=== PATIENT | male | born 1935 | race Caucasian/White ===

== ENCOUNTER 2020-02-07 15:43 | Outpatient (REF) | payer MEDICARE, SELFPAY | END 2020-02-07 15:44 | disposition home or self-care (01) | LOC: HO.LAB 15:43 | PROVIDERS: PCP Internal Medicine; Visit Provider Internal Medicine | DX: Z20.828 Contact with and (suspected) exposure to other viral communicable diseases (principal) | CPT/HCPCS: C9803; U0003 ==

== ENCOUNTER 2020-02-19 10:15 | Emergency (ER) | payer MEDICARE, SELFPAY ==
[2020-02-19 10:37] VITALS: BP 121/61; PULSE 67; RESP 18; TEMP 36.6; O2SAT 97; BMI 27.3
--- NOTE | 2020-02-19 10:37 | XR_ITS ---
EXAMINATION: LEFT HIP AND FEMUR CLINICAL INFORMATION: Atraumatic lateral upper leg pain COMPARISON: None TECHNIQUE: AP pelvis and two-view left hip. Left femur AP and lateral. FINDINGS: There is no evidence of acute fracture or diastases of the pelvis. Mild spurring sacroiliac joints seen. There is facet arthropathy is seen at the L5-S1 level with some disc space narrowing. Hip joint spaces appear maintained. There is some spurring about the left greater trochanter. No acute fracture or dislocation of the left hip is seen. Left hip joint space maintained. Calcific tendinitis greater trochanter. There is no evidence of acute fracture or dislocation of the left femur. No destructive bony lesions evident. No knee effusion is seen. There is some mild narrowing and spurring seen about the lateral knee joint space compartment. Vascular calcifications present. XR/XR pelvis 1-2V IMPRESSION: No significant bony abnormality of the left hip or femur identified. Calcific tendinitis left greater trochanter.
--- NOTE | 2020-02-19 10:37 | XR_ITS ---
EXAMINATION: LEFT HIP AND FEMUR CLINICAL INFORMATION: Atraumatic lateral upper leg pain COMPARISON: None TECHNIQUE: AP pelvis and two-view left hip. Left femur AP and lateral. FINDINGS: There is no evidence of acute fracture or diastases of the pelvis. Mild spurring sacroiliac joints seen. There is facet arthropathy is seen at the L5-S1 level with some disc space narrowing. Hip joint spaces appear maintained. There is some spurring about the left greater trochanter. No acute fracture or dislocation of the left hip is seen. Left hip joint space maintained. Calcific tendinitis greater trochanter. There is no evidence of acute fracture or dislocation of the left femur. No destructive bony lesions evident. No knee effusion is seen. There is some mild narrowing and spurring seen about the lateral knee joint space compartment. Vascular calcifications present. XR/XR femur LT 2V IMPRESSION: No significant bony abnormality of the left hip or femur identified. Calcific tendinitis left greater trochanter.
--- NOTE | 2020-02-19 10:37 | US_ITS ---
EXAMINATION: US VENOUS ULTRASOUND WITH DOPPLER LOWER EXTREMITY, LEFT CLINICAL INFORMATION: Left leg pain and swelling COMPARISON: None TECHNIQUE: Ultrasound of the deep veins is performed from the hip to the calf with compression sonography and color and pulse Doppler assessment. Spectral analysis with color-flow imaging is performed. FINDINGS: There is normal venous compression and respiratory variation and augmented flow. The visualized common femoral vein, superficial femoral vein, profunda femoral vein, popliteal vein, and the trifurcation region shows no evidence of deep venous thrombosis. There is no significant popliteal fossa cyst. No popliteal artery aneurysm If the patient's symptoms persist, followup ultrasound in 5 days 7 days might be of value to exclude proximal propagation from a non-visualized calf vein. US/US venous duplex LE LT IMPRESSION: No acute DVT demonstrated in the left lower extremity.
--- NOTE | 2020-02-19 11:11 | ED.EXTPRO ---
HPI - Extremity Problem General Chief complaint: Extremity Injury, Lower Stated complaint: leg pain (no known injury) Time Seen by Provider: 02/19/20 10:17 Source: patient Mode of arrival: ambulatory Limitations: no limitations History of Present Illness HPI Narrative: 84yoM c PMHx of prostate cancer, nephrolithiasis and hyperlipidemia presenting to the ED with complaints of atraumatic left outer thigh pain radiating to his left lower leg with associated lower leg swelling for the past few days worse today. Denies any fevers, nausea / vomiting, chest pain or shortness of breath, palpitations or any other symptoms complaints or concerns at this time. Denies history of DVT or PE in the past. Related Data Previous Rx's Medication Instructions Recorded valsartan 160 mg tablet 160 mg PO DAILY 90 Days #90 tab 12/27/19 amlodipine 10 mg tablet 10 mg PO DAILY #90 tab 01/17/20 atenolol 25 mg tablet 25 mg PO DAILY #90 tab 01/17/20 atorvastatin 20 mg tablet 20 mg PO DAILY #90 tab 01/17/20 cyclobenzaprine 10 mg PO TID PRN #10 tab 02/19/20 oxycodone-acetaminophen [Percocet] 1 tab PO Q6H PRN #10 tab 02/19/20 Allergies Allergy/AdvReac Type Severity Reaction Status Date / Time No Known Allergies Allergy Verified 02/19/20 10:37 Review of Systems Review of Systems: Constitutional :No Fever, No Chills Cardiovascular : No Chest Pain, No SOB, No Dyspnea on Exertion, No Orthopnea, No Palpitations Respiratory : No Cough, No Sputum, No Wheezing, No Smoke Exposure, No Dyspnea Musculoskeletal : + joint pain, + Joint Swelling Skin : No Skin Lesions, No rash Neuro : No Weakness, No Numbness, No Paresthesias, No Dizziness Heme/Lymph: No Lymphadenopathy Yes all other systems are reviewed and are negative [facility] Past Medical History Attestation statement: The following information was validated with the patient. Medical History No known health problems Social History Social History Alcohol intake: unknown Smoking Status: Unknown if ever smoked Use of substances other than those prescribed or required for medical reasons: Unknown Advance Directives: No Advance Directives Information Provided: No Physical Exam Vital Signs: Vital Signs: Last Vital Signs Temp 97.8 F 02/19/20 10:37 Pulse 67 02/19/20 10:37 Resp 18 02/19/20 10:37 BP 121/61 02/19/20 10:37 Pulse Ox 97 02/19/20 10:37 Body Mass Index 27.3 vital signs have been reviewed as normal and appeared to be correct. Blood pressure normal. Heart rate normal. Respiration rate normal. Temperature normal. Oxygen saturation normal. Appearance: Alert. Oriented X3. No acute distress. Head: Normal external exam. Normocephalic. Atraumatic. Eyes: PERRLA. EOMI. Conjunctiva and sclera normal. Eyelids normal. ENT: Pharynx normal. Uvula midline. Moist mucous membranes. Neck: Normal inspection. Neck supple. FROM. No adenopathy. No meningeal signs. No neck mass noted. CVS: Normal heart rate and rhythm. Heart sound normal. No murmurs noted. Pulses normal throughout. Respiratory: No respiratory distress. Painless inspiration. Breath sounds normal. No wheezes/rales/rhonchi noted. Chest nontender. No accessory muscle usage noted or decreased air movement noted. Back: No CVA tenderness. Full range of motion noted. No obvious deformities, or edema. Mild para-spinal muscular tenderness from lumbar region to coccyx. Full ROM in back and lower extremities. 5/5 strength hip extension/flexion, abduction, adduction. Mild Lumbar pain with hip flexion against resistance. Straight leg raise test negative on right; Straight leg raise test negative on left; Reflexes normal ankle and knee bilaterally; EHL motor strength normal bilaterally Skin: Skin warm and dry. Normal skin color. Normal skin turgor. No rashes/lesions/lacerations noted. Extremities: + Left lower extremity mild +1 pitting edema. No edema to Right Lower leg. Mild ttp of lateral aspect of upper thigh and hip. FROM of the entire leg. No ttp of left ankle. All other Extremities exhibit normal range of motion and nontender. Neuro: Oriented X 3. No motor deficit. No sensory deficit. Reflexes normal. Course Course Course Narrative: 84yoM c PMHx of prostate cancer, nephrolithiasis and hyperlipidemia presenting to the ED with complaints of atraumatic left outer thigh pain radiating to his left lower leg with associated lower leg swelling for the past few days worse today. - Concern for DVT vs Muscular strain vs arthritis - Plan: Xray of left Hip/pelvis/Femur and US to Evaluate for possible DVT. And re-evaluate. Patient declining any symptomatic treatment this time. Reevaluation(s) Reevaluation #1: patient with calcified tendinitis to right hip joint with bone spurring. With arthritis noted to lower spine. Negative for DVT. Will DC home with symptomatic treatment patient reports over the counter Tylenol and Motrin were not helping. With instructions to return if any new or worsening symptoms to follow-up with primary care provider. Patient understands agrees the plan. Time: 11:55 MDM - Extremity (Nontraumatic) Medical Records Attestation: I reviewed the patient's medical records. Imaging Data Xray of left hip/pelvis/femur: Attestation: I personally reviewed and interpreted this imaging study as follows: Radiologist's impression: IMPRESSION: No significant bony abnormality of the left hip or femur identified. Calcific tendinitis left greater trochanter. US of LLE: Attestation: I personally reviewed and interpreted this imaging study as follows: Radiologist's impression: IMPRESSION: No acute DVT demonstrated in the left lower extremity. Discharge Plan Discharge Clinical Impression: Calcifying tendinitis, Bone spur of femur, Arthropathy of facet joint Patient Disposition: Home, Self-Care Instructions: Calcific Tendinitis (ED), Arthritis (ED) Prescriptions: New cyclobenzaprine 10 mg tablet 10 mg PO TID PRN (Reason: muscle spasm) Qty: 10 RF: 0 oxycodone-acetaminophen [Percocet] 5-325 mg tablet 1 tab PO Q6H PRN (Reason: pain) Qty: 10 RF: 0 No Action valsartan 160 mg tablet 160 mg PO DAILY 90 Days Qty: 90 RF: 1 amlodipine 10 mg tablet 10 mg PO DAILY Qty: 90 RF: 0 atenolol 25 mg tablet 25 mg PO DAILY Qty: 90 RF: 0 atorvastatin 20 mg tablet 20 mg PO DAILY Qty: 90 RF: 1 Referrals: Coleman Hutson MD [Primary Care Provider] - 2 days Print Language: Faroese
== END 2020-02-19 11:59 | disposition home or self-care (01) ==
PROVIDERS: Emergency Provider Internal Medicine; PCP Internal Medicine
DX: M79.605 Pain in left leg (principal); R60.0 Localized edema; M65.261 Calcific tendinitis, right lower leg; Z79.899 Other long term (current) drug therapy
CPT/HCPCS: 72170; 73552; 93971; 99283; 99284

== ENCOUNTER 2020-06-13 10:50 | Observation (INO) | payer OTHER, MEDICARE, SELFPAY ==
--- NOTE | ~2020-06-13 | CT_ITS ---
EXAMINATION: CT ABDOMEN AND PELVIS WITHOUT CONTRAST CLINICAL INFORMATION: GI bleed. Possible colitis/diverticulitis. COMPARISON: Venous ultrasound left lower extremity 02/19/2020, report CT abdomen and pelvis 12/30/2005. TECHNIQUE: Multidetector volumetric imaging was performed from the superior aspect of the liver through the pubic symphysis. Sagittal and coronal reformatted images were obtained on the technologist's workstation. No oral or intravenous contrast. This CT examination was performed using dose optimization techniques as appropriate, variously including the following: *Automated exposure control *Adjustment of mA and/or kV according to patient size (this includes techniques or standardized protocols for targeted exams where dose is matched to indication/reason for exam; i.e. extremities or head) *Use of iterative reconstruction technique DLP: 583 mGy-cm FINDINGS: LUNG BASES: Linear scarring versus disc atelectasis posterior bases. No airspace consolidation or effusion. LIVER, GALLBLADDER, AND BILIARY TREE: Liver is normal in size and smooth in contour with homogeneous parenchyma. There is a punctate hypodense lesion dome left lobe approximately 0.5 cm too small to characterize, likely a tiny cyst (series 2 image 15). There is mild periportal edema. No intrahepatic ductal dilatation. Gallbladder calculus 1.1 cm in size. There is no gallbladder dilatation. The serosal surface is ill-defined and there is suspicion for mild pericholecystic inflammatory changes overlying the serosa. The common duct is normal in caliber. No visible ductal calculus. PANCREAS: Normal in size. No peripancreatic inflammatory changes. No pancreatic ductal distention. SPLEEN: Enlarged measuring 14.5 cm vertical and 14.2 cm sagittal. Parenchyma homogeneous. Incidental splenule left upper quadrant 2.1 cm. ADRENAL GLANDS: Unremarkable. KIDNEYS AND URETERS: There is mild fullness bilateral renal collecting system without overt hydronephrosis. There is no hydroureter or perinephric stranding or visible calculi. Cyst medial upper pole left kidney 2.4 cm and water attenuation on cursor measurement. BLADDER: Unremarkable. GASTROINTESTINAL TRACT: No bowel obstruction or focal inflammatory changes in the bowel or adjacent mesentery. The appendix is not seen with certainty. There are no inflammatory changes around the terminal ileum or cecum. No ascites or fluid collection. No pneumatosis or free air. ABDOMINAL WALL: Small fat-containing right inguinal hernia, 2.5 cm in diameter. LYMPH NODES: No lymphadenopathy. VASCULAR: Distal abdominal aorta aneurysm 4.6 cm AP and 3.5 cm transverse. PELVIC VISCERA: Unremarkable. OSSEOUS STRUCTURES: No acute bony abnormality. Degenerative changes spine. CT/CT abdomen pelvis wo con IMPRESSION: 1. Gallstone 1.1 cm. Question early pericholecystic inflammatory change. No gallbladder dilatation or ductal dilatation or visible choledocholithiasis. 2. Distal abdominal aortic aneurysm 4.6 cm. 3. No bowel obstruction or focal inflammatory changes in bowel or mesentery. No ascites or fluid collection. 4. Splenomegaly 14.5 cm. Liver normal in size. Pancreas unremarkable. No hydronephrosis.
[2020-06-13 11:07] VITALS: BP 137/66; PULSE 77; RESP 18; TEMP 36.8; O2SAT 98; BMI 29.9
[2020-06-13 12:10] LABS: MANUAL DIFF FLAG NO
[2020-06-13 12:13] LABS: Basophils Percent Auto 0.4 % (0-2); Eosinophils Absolute Auto 0.1 X10*3/uL (0.0-0.4); Eosinophils Percent Auto 1.1 % (0-4); Hematocrit 35.1 % (42-52); Hemoglobin 12.2 g/dl (14.0-18.0); Imm Gran Abs Auto 0.02 X10*3/uL (0.00-0.03); Imm Gran Pct Auto 0.3 % (0.0-0.4); Lymphocytes Absolute Auto 1.1 X10*3/uL (1.2-4.9); Lymphocytes Percent Auto 14.6 % (20-40); Mean Corpuscular HGB Conc 34.8 g/dl (31.0-36.0); Mean Corpuscular Hemoglobin 34.1 pg (27.0-33.0); Mean Platelet Volume 10.3 fL (9.4-12.4); Monocytes Absolute Auto 0.8 X10*3/uL (0.1-1.2); Monocytes Percent Auto 10.4 % (2-11); Neutrophils Absolute Auto 5.4 X10*3/uL (2.0-8.3); Neutrophils Percent Auto 73.2 % (45-73); Platelet Count 98 X10*3/uL (160-400); Red Blood Count 3.58 X10*6/uL (4.60-5.80); Red Cell Distribution Width 11.8 % (11.0-16.0); White Blood Count 7.4 X10*3/uL (4.8-10.8)
--- NOTE | 2020-06-13 12:14 | ED_ITS ---
HPI - GI Bleed General Chief complaint: GI Bleed Stated complaint: rectal bleeding Time Seen by Provider: 06/13/20 12:14 History of Present Illness HPI Narrative: Patient complains of multiple episodes of rectal bleeding since 2 in the morning last night, he was woken from sleep went to the bathroom and classed a significant amount of blood, and then had 3 more episodes including 1 episode where he passed normal colored brown stool mixed with blood He has no dizziness no weakness no abdominal pain no nausea or vomiting no diarrhea no rectal pain, no fever no chills He does take aspirin once a day, he does not take any blood thinner and he uses an NSAID very infrequently and has not used it for many days Related Data Home Medications Medication Instructions Recorded Confirmed [id number] [Beano] 300 unit PO TID 06/13/20 06/13/20 aspirin 81 mg PO DAILY 06/13/20 06/13/20 Previous Rx's Medication Instructions Recorded valsartan 160 mg tablet 160 mg PO DAILY 90 Days #90 tab 12/27/19 atorvastatin 20 mg tablet 20 mg PO DAILY #90 tab 01/17/20 amlodipine 10 mg tablet 10 mg PO DAILY #90 tab 05/30/20 atenolol 25 mg tablet 25 mg PO DAILY #90 tab 05/30/20 Allergies Allergy/AdvReac Type Severity Reaction Status Date / Time No Known Allergies Allergy Verified 05/08/20 13:33 Review of Systems Review of Systems: Positive for multiple episodes of red blood in the toilet Negatives are no fever no chills no dizziness no weakness no headache no confusion no difficulty breathing or swallowing no chest pain no palpitations no fainting no feeling faint no abdominal pain no nausea no vomiting no black tarry stools no dysuria no urinary complaints no leg swelling no rash, no balance issues no weakness or numbness, no bleeding from any other site Yes all other systems are reviewed and are negative [facility] Past Medical History [facility] Narrative: Patient has history of high blood pressure, prostate cancer, as well as repair of an aortic aneurysm and hernia surgeries Medical History (Updated 06/13/20 @ 16:00 by YAZAN Javier) Essential (primary) hypertension History of abdominal hernia No known health problems Surgical History History of abdominal aortic aneurysm (AAA) repair History of hand surgery History of knee replacement Family History Family History (Updated 05/08/20 @ 13:23 by Peri Caceres) Mother No problems noted. Father No problems noted. Social History Social History (Updated 05/08/20 @ 13:23 by Peri Caceres) Alcohol intake: current Alcohol intake frequency: 0-2 drinks per day Alcohol type: beer Smoking Status: Never smoker Use of substances other than those prescribed or required for medical reasons: No Advance Directives: No Advance Directives Information Provided: No Physical Exam Vital Signs: Vital Signs: Last Vital Signs Temp 98.0 F 06/13/20 15:10 Pulse 78 06/13/20 15:10 Resp 18 06/13/20 15:10 BP 133/59 L 06/13/20 15:10 Pulse Ox 98 06/13/20 15:10 Body Mass Index 29.9 General appearance is no acute distress, comfortable relaxed and cooperative and O x3 The head is normocephalic atraumatic The pharynx is clear and moist The pupils are anicteric, no pallor The neck is supple The chest is clear to auscultation bilaterally full symmetric equal breath sounds Heart no murmurs Abdomen is soft nontender no rebound no guarding, normal abdomen exam Rectal exam was nontender, normal tone, no mass or hemorrhoid was palpated there was no tenderness on exam, no external source of bleeding was identified Extremities full range of motion x4, no edema no calf tenderness or swelling Skin no rashes no petechiae no purpura or Neuro motor is 5 over x5 4, sensation intact, gait and balance normal, speech in interaction normal Course Course Course Narrative: Patient with complaint of multiple episodes of red blood in the stool since last night is stable with no dizziness or weakness no abdominal pain no nausea or vomiting I guaiaced him and guaiac was clearly positive Another guaiac card with the same sample was sent to the lab in the lab reported as negative, my exam was light colored brown stool small amount was placed on both cards and when I tested it was clearly blue and was shown to the patient who saw it Platelets were 96, patient does take aspirin CT scan did not identify any acute cause of the bleeding Stable patient with multiple episodes of rectal bleeding is admitted to medical unit for further care MDM - GI Bleed Differential Diagnosis Differential diagnosis: Likely hemorrhoids, infectious diarrhea, esophageal varices, Upper gastrointestinal hemorrhage and Lower gastrointestinal hemorrhage Lab Data Attestation: I reviewed the patient's lab results. Result diagrams: 06/13/20 12:05 06/13/20 12:04 Labs: Lab Results 06/13/20 06/13/20 06/13/20 Range/Units 12:04 12:05 12:05 WBC 7.4 (4.8-10.8) X10*3/uL RBC 3.58 L (4.60-5.80) X10*6/uL Hgb 12.2 L (14.0-18.0) g/dl Hct 35.1 L (42-52) % MCV 98.0 (80-98) fL MCH 34.1 H (27.0-33.0) pg MCHC 34.8 (31.0-36.0) g/dl RDW 11.8 (11.0-16.0) % Plt Count 98 L (160-400) X10*3/uL MPV 10.3 (9.4-12.4) fL Immature Gran % (Auto) 0.3 (0.0-0.4) % Neut % (Auto) 73.2 H (45-73) % Lymph % (Auto) 14.6 L (20-40) % [place] % (Auto) 10.4 (2-11) % Eos % (Auto) 1.1 (0-4) % Baso % (Auto) 0.4 (0-2) % Lymph # (Auto) 1.1 L (1.2-4.9) X10*3/uL [place] # (Auto) 0.8 (0.1-1.2) X10*3/uL Eos # (Auto) 0.1 (0.0-0.4) X10*3/uL Baso # (Auto) 0.0 (0.0-0.2) X10*3/uL Abs Immat Gran (auto) 0.02 (0.00-0.03) X10*3/uL Absolute Neuts (auto) 5.4 (2.0-8.3) X10*3/uL Absolute Nucleated RBC 0.000 (0.0-0.012) X10*3/uL Nucleated RBC % (auto) 0.0 (0.0-0.2) /100WBC PT 11.9 (10.8-13.0) SEC INR 1.0 (0.9-1.1) Hold Blue Top SEE NOTE Sodium 141 (135-145) mmol/L Potassium 4.0 (3.3-5.1) mmol/L Chloride 107 (96-108) mmol/L Carbon Dioxide 24 (22-29) mmol/L Anion Gap 14 (12-20) BUN 22 H (9-16) mg/dL Creatinine 1.22 (0.5-1.4) mg/dL Estim Creat Clear Calc 45.9 Estimated GFR 57 Random Glucose 130 H (60-115) mg/dL Calcium 9.0 (8.4-10.2) mg/dL Total Bilirubin 0.6 (0.0-1.0) mg/dL Direct Bilirubin 0.3 (0.0-0.5) mg/dL AST 21 (5-37) U/L ALT 10 (0-40) U/L Alkaline Phosphatase 86 (39-117) U/L Total Protein 6.3 L (6.5-8.0) g/dL Albumin 4.1 (3.5-5.0) g/dL Stool Occult Blood (NEGATIVE) Blood Type Antibody Screen 06/13/20 06/13/20 Range/Units 13:02 13:54 WBC (4.8-10.8) X10*3/uL RBC (4.60-5.80) X10*6/uL Hgb (14.0-18.0) g/dl Hct (42-52) % MCV (80-98) fL MCH (27.0-33.0) pg MCHC (31.0-36.0) g/dl RDW (11.0-16.0) % Plt Count (160-400) X10*3/uL MPV (9.4-12.4) fL Immature Gran % (Auto) (0.0-0.4) % Neut % (Auto) (45-73) % Lymph % (Auto) (20-40) % [place] % (Auto) (2-11) % Eos % (Auto) (0-4) % Baso % (Auto) (0-2) % Lymph # (Auto) (1.2-4.9) X10*3/uL [place] # (Auto) (0.1-1.2) X10*3/uL Eos # (Auto) (0.0-0.4) X10*3/uL Baso # (Auto) (0.0-0.2) X10*3/uL Abs Immat Gran (auto) (0.00-0.03) X10*3/uL Absolute Neuts (auto) (2.0-8.3) X10*3/uL Absolute Nucleated RBC (0.0-0.012) X10*3/uL Nucleated RBC % (auto) (0.0-0.2) /100WBC PT (10.8-13.0) SEC INR (0.9-1.1) Hold Blue Top Sodium (135-145) mmol/L Potassium (3.3-5.1) mmol/L Chloride (96-108) mmol/L Carbon Dioxide (22-29) mmol/L Anion Gap (12-20) BUN (9-16) mg/dL Creatinine (0.5-1.4) mg/dL Estim Creat Clear Calc Estimated GFR Random Glucose (60-115) mg/dL Calcium (8.4-10.2) mg/dL Total Bilirubin (0.0-1.0) mg/dL Direct Bilirubin (0.0-0.5) mg/dL AST (5-37) U/L ALT (0-40) U/L Alkaline Phosphatase (39-117) U/L Total Protein (6.5-8.0) g/dL Albumin (3.5-5.0) g/dL Stool Occult Blood NEGATIVE (NEGATIVE) Blood Type B Positive Antibody Screen NEGATIVE Imaging Data CT scan - abdomen: Radiologist's impression: 1. Gallstone 1.1 cm. Question early pericholecystic inflammatory change. No gallbladder dilatation or ductal dilatation or visible choledocholithiasis. 2. Distal abdominal aortic aneurysm 4.6 cm. 3. No bowel obstruction or focal inflammatory changes in bowel or mesentery. No ascites or fluid collection. 4. Splenomegaly 14.5 cm. Liver normal in size. Pancreas unremarkable. No hydronephrosis. Discharge Plan Discharge Clinical Impression: GI bleed Patient Disposition: Admitted As Inpatient
[2020-06-13 12:48] LABS: Anion Gap 14 (12-20); Blood Urea Nitrogen 22 mg/dL (9-16); Carbon Dioxide 24 mmol/L (22-29); Chloride 107 mmol/L (96-108); Creatinine Clr Calc Pharmacy 45.9; Estimated Glomerular Filt Rate 57; Glucose Random 130 mg/dL (60-115); Sodium 141 mmol/L (135-145)
[2020-06-13 13:04] LABS: Prothrombin Time 11.9 SEC (10.8-13.0)
[2020-06-13 13:17] LABS: OBS Int Ctl Valid YES; OBS1 NEGATIVE (NEGATIVE)
[2020-06-13 13:45] LABS: Alanine Aminotransferase 10 U/L (0-40); Albumin Level 4.1 g/dL (3.5-5.0); Alkaline Phosphatase 86 U/L (39-117); Aspartate Amino Transferase 21 U/L (5-37); Bilirubin Direct 0.3 mg/dL (0.0-0.5); Bilirubin Total 0.6 mg/dL (0.0-1.0); Total Protein 6.3 g/dL (6.5-8.0)
--- NOTE | 2020-06-13 14:55 | PC.NURSE ---
report taken from Joseph r=pending ct scan which is negative. Client appears in nbad, denies pain. Ray x 3 with equal and non labored rr.
[2020-06-13 15:10] VITALS: BP 133/59; PULSE 78; RESP 18; TEMP 36.7; O2SAT 98
[2020-06-13 16:00] VITALS: BP 140/62; PULSE 71; RESP 16; TEMP 36.7; O2SAT 96
--- NOTE | 2020-06-13 16:47 | PC.NURSE ---
client offers no needs wants, client was seen by hospitalist. pending admission at this time.
--- NOTE | 2020-06-13 16:48 | PC.NURSE ---
client remains sleeping at this time. nad noted,
[2020-06-13 17:05] LABS: COVID-19 Test Negative (Negative); IDNOW Serial# 9DD0AD1C
--- NOTE | 2020-06-13 17:18 | P.HPHOSP_ITS ---
History of Present Illness Date of Service: 06/13/20 Chief Complaint: rectal bleeding This is an 84-year-old male who presents to the emergency department today with complaints of rectal bleeding. Last evening around 22:00 he had the first episode of rectal bleeding. He reports 4 episodes of bright red blood per rectum. This blood was not mixed with stool. He denies any associated abdominal pain, diarrhea, fever, chills. He denies any previous history of GI bleeding. He takes a baby aspirin at home daily but denies the use of any anticoagulation or NSAIDs. CT scan of the abdomen did not show any acute pathology to account for bleeding. H/H was stable compared to previous from 2019. Stool occult was ch ecked and was negative. He does report having to strain recently when having bowel movements. Last colonoscopy was 15 years ago and was reportedly normal. He denies any known history of hemorrhoids. Given multiple episodes of rectal bleeding, the decision was made to admit him overnight for observation. Review of Systems Review of Systems: Yes all other systems are reviewed and are negative Constitutional: Constitutional: Denies chills and Denies fever(s) Cardiovascular: Cardiovascular: Denies chest pain Respiratory: Respiratory: Denies cough Gastrointestinal: Gastrointestinal: Denies abdominal pain, Denies diarrhea, Denies nausea and Denies vomiting [facility] Medical History (Updated 06/13/20 @ 17:31 by YAZAN Melgar) Essential (primary) hypertension History of abdominal hernia Hyperlipidemia No known health problems Prostate cancer Functional capacity: independent ambulation Family History Mother No problems noted. Father No problems noted. Family history: reviewed and not pertinent Surgical History H/O radical prostatectomy History of abdominal aortic aneurysm (AAA) repair History of hand surgery History of knee replacement Social History (Updated 06/13/20 @ 17:31 by YAZAN Melgar) Alcohol intake: current Alcohol intake frequency: 0-2 drinks per day Alcohol type: hard liquor Smoking Status: Never smoker Use of substances other than those prescribed or required for medical reasons: No Advance Directives: No Advance Directives Information Provided: No Meds Allergies Allergy/AdvReac Type Severity Reaction Status Date / Time No Known Allergies Allergy Verified 05/08/20 13:33 Active Medications: Current Medications Generic Name Dose Route Start Last Admin Trade Name Ana PRN Reason Stop Dose Admin Pharmacy Consult 1 each 06/13/20 14:54 Consult Rx Perform Med Rec MISCELLANE ONCE PRN Consult order Home Medications Medication Instructions Recorded Confirmed Last Taken Type gmelc-[id number] [Beano] 300 unit PO TID 06/13/20 06/13/20 06/12/20 History aspirin 81 mg PO DAILY 06/13/20 06/13/20 06/13/20 History Physical Exam Vital Signs and Narrative: Vital Signs: Last Vital Signs Temp 98.1 F 06/13/20 16:00 Pulse 71 06/13/20 16:00 Resp 16 06/13/20 16:00 BP 140/62 H 06/13/20 16:00 Pulse Ox 96 06/13/20 16:00 Body Mass Index 29.9 Const: General: no acute distress, alert and awake Nutritional Appearance: well nourished Orientation/consciousness: patient oriented x3 HENMT: Head: Yes normocephalic and Yes atraumatic Eyes: Sclerae: sclerae normal Chest: Chest palpation & inspection: normal inspection of the chest Resp: Effort & Inspection: normal respiratory effort and no respiratory distress Auscultation: clear to auscultation bilaterally Cardio: Rate: regular rate Rhythm: regular rhythm Heart sounds: Murmur heart sound present systolic GI: Inspection: No distended Palpation (GI): Soft to palpation and nontender Neuro: General: patient oriented x3 Cranial nerves: Yes CN's II-XII intact bilaterally and Yes Bilaterally intact EOM present Extrem: Other: trace LLE edema Results Labs CBC and Chem 7: 06/13/20 12:05 06/13/20 12:04 Labs: Laboratory Results - last 24 hr 06/13/20 06/13/20 06/13/20 12:04 12:05 12:05 MCV 98.0 MCH 34.1 H MCHC 34.8 RDW 11.8 Plt Count 98 L MPV 10.3 Immature Gran % (Auto) 0.3 Neut % (Auto) 73.2 H Lymph % (Auto) 14.6 L Armstrong % (Auto) 10.4 Eos % (Auto) 1.1 Baso % (Auto) 0.4 Lymph # (Auto) 1.1 L Armstrong # (Auto) 0.8 Eos # (Auto) 0.1 Baso # (Auto) 0.0 Abs Immat Gran (auto) 0.02 Absolute Neuts (auto) 5.4 Absolute Nucleated RBC 0.000 Nucleated RBC % (auto) 0.0 PT 11.9 INR 1.0 Hold Blue Top SEE NOTE Anion Gap 14 Estim Creat Clear Calc 45.9 Estimated GFR 57 Random Glucose 130 H Calcium 9.0 Total Bilirubin 0.6 Direct Bilirubin 0.3 AST 21 ALT 10 Alkaline Phosphatase 86 Total Protein 6.3 L Albumin 4.1 Stool Occult Blood COVID-19 (MARIA LUISA) COVID-19 [employer] Blood Type Antibody Screen 06/13/20 06/13/20 06/13/20 13:02 13:54 16:31 MCV MCH MCHC RDW Plt Count MPV Immature Gran % (Auto) Neut % (Auto) Lymph % (Auto) Armstrong % (Auto) Eos % (Auto) Baso % (Auto) Lymph # (Auto) Armstrong # (Auto) Eos # (Auto) Baso # (Auto) Abs Immat Gran (auto) Absolute Neuts (auto) Absolute Nucleated RBC Nucleated RBC % (auto) PT INR Hold Blue Top Anion Gap Estim Creat Clear Calc Estimated GFR Random Glucose Calcium Total Bilirubin Direct Bilirubin AST ALT Alkaline Phosphatase Total Protein Albumin Stool Occult Blood NEGATIVE COVID-19 (MARIA LUISA) Negative COVID-19 [employer] See Note Blood Type B Positive Antibody Screen NEGATIVE Imaging Radiologist's Impressions: Impressions Abdomen/Pelvis CT 06/13/20 12:55 IMPRESSION: 1. Gallstone 1.1 cm. Question early pericholecystic inflammatory change. No gallbladder dilatation or ductal dilatation or visible choledocholithiasis. 2. Distal abdominal aortic aneurysm 4.6 cm. 3. No bowel obstruction or focal inflammatory changes in bowel or mesentery. No ascites or fluid collection. 4. Splenomegaly 14.5 cm. Liver normal in size. Pancreas unremarkable. No hydronephrosis. Assessment and Plan (1) GI bleed: Status: Acute This is an 84-year-old male with a history of hypertension, hyperlipidemia, AAA status post repair who presents to the emergency department with rectal bleeding Acute GI bleeding Lower GI source. No diverticulosis/colitis noted on CT. H/H stable, no indication for transfusion. Stool occult negative -Clear liquid diet -IVF -Trend CBC -Hold ASA, avoid AC -GI consult HTN. -Continue Atenolol -Hold Norvasc, valsartan in setting of GIB -Follow BP closely TCP No previous baseline available Splenomegaly on CT -Hold ASA -Follow CBC HLD -Continue statin DVT prophylaxis-mechanical devices Code status-full code This case was discussed with Dr. Lazo
--- NOTE | 2020-06-13 17:37 | PM.EVENT ---
Event Note Date of Service: 06/13/20 Event Note: Addendum to documentation (H and P) by midlevel I saw and examined the patient and participated in the grace portion of the E/M service. I agree with the history and exam as documented by PA. Patient presents with 4 episodes or rectal bleed with no pain, Hgb is 12, and hemodynamically stable. Last colonoscopy 15 years. Exam: Abd sot, nd, nt, cvRRR S1S2, lungs, clear, Neuro intact. Will admit for serial H/H, monitor hemodynamically, bleeding scan if actively bleeding, GI consult for possible endoscopy, No heparin/Lovenox and hold ASA. Otherwise, I agree with assessment and plan as outlined in the H and P.
[2020-06-13 18:00] VITALS: BP 126/62; PULSE 67; RESP 16; TEMP 36.9; O2SAT 95
--- NOTE | 2020-06-13 18:16 | PC.NURSE ---
client brought dinner, soiled and urinated in bed. client changed, skin wiped down with wipes. client did well with sterilift. client ate 100% of dinner. offers no new complaints. pending bed assignment,
[2020-06-13 21:57] VITALS: BP 123/63; PULSE 81; RESP 16; TEMP 36.7; O2SAT 96
--- NOTE | 2020-06-13 22:30 | MHC.CM.PN ---
Addendum entered by Helena Kebede 06/13/20 22:35: No HCP on file. Original Note: CM met with pt. Pt is very well kept, does not look his stated age and is A&Ox3. Pt lives with his and rhodes in [place]. Pt has no equipment in the home, no services and still drives. [facility] is [facility], [facility] and [facility]. Otherwise the pt has private healthcare. PCP Dr. Hutson. Pt is fully vaccinated with Moderna Vaccine. Expect d/c home without services. , Yeni, to provide transportation home.([phone]) CM to follow for d/c needs.
[2020-06-13 23:17] VITALS: BP 114/68; PULSE 84; RESP 16; TEMP 36.8; O2SAT 97
[2020-06-14] VITALS (8 sets, daily range): BP systolic 112–131; BP diastolic 53–65; PULSE 65–82; RESP 16–20; TEMP 36.3–36.9; O2SAT 95–98
--- NOTE | 2020-06-14 | PC.NURSE ---
patient resting comfortably on stretcher, skin is p,d,w. with no distress noted. asking when he will go up to his room, stating that it would not be tonight, most likely in the am. patient stating he was comfortable on the stretcher and did not currently need anything. able ti verbalize needs.
[2020-06-14] MEDS: 0.9 % Sodium Chloride Flush 3 ML SYRINGE IVFLUSH ×4 (00:05→23:18)
--- NOTE | 2020-06-14 06:20 | PC.NURSE ---
patient resting comfortably in bed, denies pain or discomfort at this time. breathing is even and unlabored. no distress noted. denies rectal bleeding, no episodes throughout the night. skin is p,d,w. awaiting room assignement
--- NOTE | 2020-06-14 07:13 | PC.NURSE ---
pt is alert and oriented x3. eye contact and verbal response appropriate for setting. pt speaks in full sentences and is able to make needs known. lung sounds clear bilaterally, respirations are even and effort is unlabored. pt denies feeling short of breath. heart rate and sounds normal. bowel sounds active x4. pt denies pain on palpation in all quadrants, abdomen is soft, non-tender, non-distended. no discoloration or bruising or deformities noted on abdomen. pt denies any pain at this time. pt states he was not able to have a bowel movement overnight despite feeling urge. pt aware of plan of care for admission. call mota in reach.
--- NOTE | 2020-06-14 07:20 | PC.NURSE ---
pt has vertical midline scar on abdomen which he states is from a previous surgery to repair abdominal aortic aneurism
[2020-06-14 07:27] LABS: Hemoglobin 11.9 g/dl (14.0-18.0); Imm Gran Abs Auto 0.01 X10*3/uL (0.00-0.03); Imm Gran Pct Auto 0.2 % (0.0-0.4); Mean Platelet Volume 10.6 fL (9.4-12.4); Red Cell Distribution Width 11.9 % (11.0-16.0)
[2020-06-14 07:29] LABS: Basophils Percent Auto 0.2 % (0-2); Eosinophils Absolute Auto 0.1 X10*3/uL (0.0-0.4); Eosinophils Percent Auto 2.8 % (0-4); Lymphocytes Absolute Auto 0.8 X10*3/uL (1.2-4.9); Lymphocytes Percent Auto 16.2 % (20-40); Mean Corpuscular Hemoglobin 33.9 pg (27.0-33.0); Mean Corpuscular Volume 99.7 fL (80-98); Monocytes Absolute Auto 0.5 X10*3/uL (0.1-1.2); Monocytes Percent Auto 9.5 % (2-11); Neutrophils Absolute Auto 3.6 X10*3/uL (2.0-8.3); Neutrophils Percent Auto 71.1 % (45-73); Red Blood Count 3.51 X10*6/uL (4.60-5.80); White Blood Count 5.1 X10*3/uL (4.8-10.8)
[2020-06-14 07:31] LABS: Platelet Count 80 X10*3/uL (160-400)
[2020-06-14 07:45] LABS: Anion Gap 12 (12-20); Blood Urea Nitrogen 18 mg/dL (9-16); Calcium 8.7 mg/dL (8.4-10.2); Carbon Dioxide 26 mmol/L (22-29); Chloride 108 mmol/L (96-108); Estimated Glomerular Filt Rate > 60; Glucose Random 107 mg/dL (60-115); Potassium 4.3 mmol/L (3.3-5.1); Sodium 142 mmol/L (135-145)
--- NOTE | 2020-06-14 08:05 | PC.NURSE ---
nurse to nurse report given to Hiral LANDRY
[2020-06-14] MEDS: Docusate Sodium 100 MG CAPSULE PO (08:10)
[2020-06-14] MEDS: atenoloL 25 MG TABLET PO (08:11)
--- NOTE | 2020-06-14 14:04 | P.PNIM_ITS ---
Subjective Subjective Date of Service: 06/14/20 <YAZAN Melgar - Last Filed: 06/14/20 14:10> 06/14/20 <Brayden Trevino MD - Last Filed: 06/14/20 16:31> Interval History: f/u GI bleeding No further episodes of bleeding overnight. No abdominal pain, nausea or vomiting; no complaints this morning No overnight events. <YAZAN Melgar - Last Filed: 06/14/20 14:10> Review of Systems Review of Systems: Yes all other systems are reviewed and are negative <YAZAN Melgar - Last Filed: 06/14/20 14:10> Constitutional Constitutional: Denies chills and Denies fever(s) <YAZAN Melgar - Last Filed: 06/14/20 14:10> Cardiovascular Cardiovascular: Denies chest pain <YAZAN Melgar - Last Filed: 06/14/20 14:10> Respiratory Respiratory: Denies cough <YAZAN Melgar - Last Filed: 06/14/20 14:10> Gastrointestinal Gastrointestinal: Denies abdominal pain <YAZAN Melgar - Last Filed: 06/14/20 14 :10> Physical Exam Vital Signs: Vital Signs: Last Vital Signs Temp 97.5 F 06/14/20 11:33 Pulse 75 06/14/20 11:33 Resp 18 06/14/20 11:33 BP 121/65 06/14/20 11:33 Pulse Ox 96 06/14/20 11:33 Body Mass Index 29.9 <YAZAN Melgar - Last Filed: 06/14/20 14:10> Const: General: cooperative, comfortable, no acute distress, alert and awake <YAZAN Melgar - Last Filed: 06/14/20 14:10> Nutritional Appearance: well nourished <YAZAN Melgar - Last Filed: 06/14/20 14:10> Orientation/consciousness: patient oriented x3 <YAZAN Melgar - Last Filed: 06/14/20 14:10> HENMT: Head: Yes normocephalic and Yes atraumatic <YAZAN Melgar - Last Filed: 06/14/20 14:10> Eyes: Sclerae: sclerae normal <YAZAN Melgar - Last Filed: 06/14/20 14:10> Chest: Chest palpation & inspection: normal inspection of the chest <YAZAN Melgar - Last Filed: 06/14/20 14:10> Resp: Effort & Inspection: normal respiratory effort and no respiratory distress <YAZNA Melgar - Last Filed: 06/14/20 14:10> Auscultation: clear to auscultation bilaterally <YAZAN Melgar - Last Filed: 06/14/20 14:10> Cardio: Rate: regular rate <YAZAN Melgar - Last Filed: 06/14/20 14:10> Rhythm: regular rhythm <YAZAN Melgar - Last Filed: 06/14/20 14:10> Heart sounds: Murmur heart sound present systolic <YAZAN Melgar - Last Filed: 06/14/20 14:10> GI: Inspection: No distended <YAZAN Melgar - Last Filed: 06/14/20 14:10> Palpation (GI): Soft to palpation, nontender and no guarding <YAZAN Melgar - Last Filed: 06/14/20 14:10> Neuro: General: patient oriented x3 <YAZAN Melgar - Last Filed: 06/14/20 14:10> Cranial nerves: Yes CN's II-XII intact bilaterally and Yes Bilaterally intact EOM present <YAZAN Melgar - Last Filed: 06/14/20 14:10> Objective Data Current Medications Generic Name Dose Route Start Last Admin Trade Name Freq PRN Reason Stop Dose Admin Acetaminophen 650 mg 06/13/20 23:17 Acetaminophen 325 Mg Tablet PO Q6H PRN Pain, Mild (Pain Scale 1-3) Atenolol 25 mg 06/14/20 09:00 06/14/20 08:11 Atenolol 25 Mg Tablet PO 25 mg DAILY [facility] Administration Protocol Atorvastatin Calcium 20 mg 06/14/20 21:00 Atorvastatin Calcium 20 Mg Tablet PO BEDTIME [facility] Docusate Sodium 100 mg 06/13/20 23:17 06/14/20 08:10 Docusate Sodium 100 Mg Capsule PO 100 mg DAILY PRN Administration Constipation Ondansetron HCl 4 mg 06/13/20 23:17 Ondansetron Hcl 4 Mg/2 Ml Vial IVPUSH Q8H PRN Nausea and Vomiting Pharmacy Consult 1 each 06/13/20 14:54 Consult Rx Perform Med Rec MISCELLANE ONCE PRN Consult order Sodium Chloride 3 ml 06/14/20 00:00 06/14/20 07:20 0.9 % Sodium Chloride Flush 3 Ml Syringe IVFLUSH 3 ml QSHIFT ROSA Administration <YAZAN Melgar - Last Filed: 06/14/20 14:10> Labs CBC & Chem 7: : 06/14/20 07:13 06/14/20 07:13 <YAZAN Melgar - Last Filed: 06/14/20 14:10> Assessment and Plan (1) GI bleed: Status: Acute <YAZAN Melgar - Last Filed: 06/14/20 14:10> Assessment and Plan: This is an 84-year-old male with a history of hypertension, hyperlipidemia, AAA status post repair who presents to the emergency department with rectal bleeding Acute GI bleeding No further bleeding overnight Lower GI source. No diverticulosis/colitis noted on CT. H/H stable, no indication for transfusion. Stool occult negative -Clear liquid diet -IVF -Trend CBC -Hold ASA, avoid AC -GI consult pending HTN. -Continue Atenolol -Hold Norvasc, valsartan in setting of GIB -Follow BP closely TCP Platelets stable. No previous baseline available Splenomegaly on CT -Hold ASA -Follow CBC HLD -Continue statin DVT prophylaxis-mechanical devices Code status-full code Attending: Dr. Trevino <YAZAN Melgar - Last Filed: 06/14/20 14:10> Patient seen and examined independently and I was present during grace portion of E/M service. Agree with YAZAN Patten's history, physical, assessment, and plan. Seen and examined. No further bleeding. Await GI consult, possible scope tomorrow. Clears for now. <Brayden Trevino MD - Last Filed: 06/14/20 16:31>
--- NOTE | 2020-06-14 17:08 | P.EN_ITS ---
Event Note Date of Service: 06/14/20 Event Note: GI Consult-Full note dictated-Hx via patient, RN, and EMR. Imp: Acute lower GI bleed. He describes 4 episodes of BRB with brown stool over the course of late Thursday night into early yesterday morning. He has stabilized and stopped bleeding on his own. His abdominal exam is benign and his Hgb has been stable. He describes a negative colonoscopy approx. 15 years ago at [facility]. Prior to this his BM's had been stable and normal. He uses one 81mg ASA daily, but no other NSAIDs nor other anticoagulants. Diff dx: Diverticular bleed vs. Ischemic colitis. Less likely would be GI neoplasm or significant polyps. Rec: Colonoscopy tomorrow with MAC, 06/15/2020. Full consent obtained for this, including risks of bleeding and perforation. Continue to follow Hgb. Obtain a stat nuclear medicine bleeding scan if he develops active bleeding. D/W patient in detail and he is comfortable with this plan. Thanks
[2020-06-14] MEDS: PEG 3350/Na Sulf,Bicarb,Cl/KCL 4,000 ML SOLN.RECON 240 ML PO ×17 (19:31→19:36)
[2020-06-14] MEDS: Atorvastatin Calcium 20 MG TABLET PO (19:32)
[2020-06-14] MEDS: bisacodyL 5 MG TABLET.DR 10 MG PO (19:32)
[2020-06-15] VITALS (13 sets, daily range): BP systolic 85–119; BP diastolic 29–60; PULSE 53–67; RESP 15–20; TEMP 36.2–37.1; O2SAT 93–96; BMI 27.3
--- NOTE | 2020-06-15 02:04 | CONS_ITS ---
DATE OF SERVICE: 06/14/2020 REQUESTING PHYSICIAN: Dr. Trevino. REASON FOR CONSULTATION: Lower GI bleeding. HISTORY OF PRESENT ILLNESS: This has been obtained for the patient, medical record, and his nurse. The patient is an 84-year-old healthy male, who was in his usual state of health up until the night prior to admission. At that time, he developed the urge to have a bowel movement late in the evening. This was a brown soft stool, but mixed with bright red blood. Over the course of the night until yesterday morning, he had 3 more episodes that were similar. He denies any melena, abdominal pain, nausea, vomiting, nor fever. Prior to the onset of his bleeding, he was having normal bowel movements and has not had any previous history of GI bleeding. He describes a negative colonoscopy about [address] Fajardo. He has enjoyed a good appetite without any significant heartburn nor dysphagia. He denies any abdominal pain, jaundice, nor weight loss. He denies any known family history of colorectal cancer nor inflammatory bowel disease. He does take a single low-dose aspirin daily, but no other NSAIDs nor anticoagulants. He does not smoke nor use any significant amounts of alcohol. Since admission here, he has had no further signs of bleeding. He currently feels well. His hemoglobin has remained stable at 12.2 yesterday and 11.9 this morning. He had a hemoglobin of 13.8 in 2019. MEDICATIONS: At home included amlodipine, aspirin 81 mg, atenolol, and atorvastatin. He may also have been on valsartan. His present medications here in the hospital include acetaminophen, atenolol, atorvastatin, Zofran p.r.n., Colace p.r.n. PAST MEDICAL HISTORY: Surgery for abdominal aortic aneurysm, abdominal wall hernias with placement of a mesh. Right knee replacement over 10 years ago, and a prostatectomy about 20 years ago for prostate cancer. He has history of hypertension and hyperlipidemia. He denies history of NV, diabetes, stroke, lung disease, or kidney disease. SOCIAL HISTORY: He is . He is retired. He does not smoke nor use any significant amounts of alcohol. FAMILY HISTORY: Noncontributory. REVIEW OF SYSTEMS: CONSTITUTIONAL: He has been feeling quite well at home with good energy, good appetite. SKIN: No rash. No pruritus. CARDIAC: No chest pain. PULMONARY: No coughing or hemoptysis. GI: As above. URINARY: No dysuria. No hematuria. NEUROLOGIC: No headache or seizures. PHYSICAL EXAMINATION: GENERAL: The patient is a pleasant alert, well-appearing male, in no distress. SKIN: Warm and dry. Anicteric sclerae. NECK: Supple. CHEST: Clear. CARDIAC: Normal S1, S2. ABDOMEN: Soft, nondistended, and nontender. There is no palpable mass. EXTREMITIES: Without edema. NEUROLOGIC: He is alert and oriented. LABORATORY DATA: As above. He did have a CAT scan of the abdomen and pelvis, which describes a gallstone but no evidence for any biliary disease. There is no sign of any GI pathology, such as diverticulitis nor colitis. There were no other acute significant abnormalities. Other laboratories revealed a white blood cell count of 5.1, hemoglobin of 11.9, platelets 80,000. PT 11.9 with INR 1.0. Normal electrolytes. BUN 18, creatinine 1.1. LFTs were normal including albumin of 4.1. COVID test was negative. Of note, the CAT scan of the abdomen and pelvis describes a normal-appearing liver, but does describe some component of an enlarged spleen. IMPRESSION: Given the patient's presentation, this seems most consistent with a lower gastrointestinal bleed in relation to diverticulosis, or possibly ischemic colitis. Overall, I would favor the former diagnosis of diverticulosis. As I explained to the patient, it will be important to exclude any other pathology, such as significant polyps or GI neoplasm given that his last colonoscopy was over 10 years ago. As such, I would recommend a colonoscopy while he is an inpatient. This will be done with monitored anesthesia care. Full consent has been obtained for this, including risks of bleeding and perforation. In the meantime, I will continue to follow his laboratories, including hemoglobin and platelet count. If he shows signs of active bleeding, I would obtain a stat nuclear medicine bleeding scan. In regard to the thrombocytopenia, the CAT scan does describe some splenomegaly, but there was no sign of any liver disease based on his exam, the CAT scan, and the laboratories with a normal albumin and PT with INR. If the platelets continue to drop, he may need hematology consultation. Full consent has been obtained from him for the colonoscopy, including risks of bleeding and perforation. The colonoscopy will be done with monitored anesthesia care. This has all been reviewed with the patient in detail, and he is comfortable with this plan. Thank you for this consultation. MD TALHA Montaño/LORNE / [phone]
[2020-06-15 06:11] LABS: MANUAL DIFF FLAG NO
[2020-06-15 06:35] LABS: Anion Gap 14 (12-20); Blood Urea Nitrogen 17 mg/dL (9-16); Calcium 8.5 mg/dL (8.4-10.2); Carbon Dioxide 24 mmol/L (22-29); Chloride 106 mmol/L (96-108); Creatinine Clr Calc Pharmacy 49.5; Estimated Glomerular Filt Rate > 60; Glucose Random 89 mg/dL (60-115); Potassium 3.7 mmol/L (3.3-5.1); Sodium 140 mmol/L (135-145)
[2020-06-15 06:58] LABS: Basophils Percent Auto 0.4 % (0-2); Eosinophils Absolute Auto 0.2 X10*3/uL (0.0-0.4); Eosinophils Percent Auto 3.6 % (0-4); Hematocrit 31.7 % (42-52); Imm Gran Abs Auto 0.02 X10*3/uL (0.00-0.03); Imm Gran Pct Auto 0.4 % (0.0-0.4); Lymphocytes Absolute Auto 0.9 X10*3/uL (1.2-4.9); Lymphocytes Percent Auto 18.6 % (20-40); Mean Corpuscular HGB Conc 34.7 g/dl (31.0-36.0); Mean Corpuscular Hemoglobin 34.3 pg (27.0-33.0); Mean Corpuscular Volume 98.8 fL (80-98); Mean Platelet Volume 11.2 fL (9.4-12.4); Monocytes Absolute Auto 0.7 X10*3/uL (0.1-1.2); Neutrophils Absolute Auto 3.2 X10*3/uL (2.0-8.3); Red Blood Count 3.21 X10*6/uL (4.60-5.80); Red Cell Distribution Width 11.9 % (11.0-16.0); White Blood Count 5.1 X10*3/uL (4.8-10.8)
[2020-06-15 07:03] LABS: Platelet Count 83 X10*3/uL (160-400)
[2020-06-15] MEDS: atenoloL 25 MG TABLET PO (07:41)
[2020-06-15] MEDS: 0.9 % Sodium Chloride Flush 3 ML SYRINGE IVFLUSH ×2 (07:45→14:56)
--- NOTE | 2020-06-15 08:46 | HO.PM.IMPN ---
Subjective Subjective Date of Service: 06/15/20 <YAZAN Melgar - Last Filed: 06/15/20 08:51> 06/15/20 <Brayden Trevino MD - Last Filed: 06/15/20 13:07> Interval History: f/u GI bleeding no bleeding overnight no complaints this am ROS: Pulmonary: no SOB,cough Cardiovascular: no CP GI: abdominal pain, nausea or vomiting <YAZAN Melgar - Last Filed: 06/15/20 08:51> Physical Exam Vital Signs: Vital Signs: Last Vital Signs Temp 98.7 F 06/15/20 07:35 Pulse 63 06/15/20 07:41 Resp 18 06/15/20 07:35 BP 119/57 L 06/15/20 07:41 Pulse Ox 94 06/15/20 07:35 Body Mass Index 29.9 <YAZAN Melgar - Last Filed: 06/15/20 08:51> Const: General: cooperative, comfortable, no acute distress, alert and awake <YAZAN Melgar - Last Filed: 06/15/20 08:51> Nutritional Appearance: well nourished <YAZAN Melgar - Last Filed: 06/15/20 08:51> Orientation/consciousness: patient oriented x3 <YAZAN Melgar Last Filed: 06/15/20 08:51> HENMT: Head: Yes normocephalic and Yes atraumatic <YAZAN Melgar - Last Filed: 06/15/20 08:51> Eyes: Sclerae: sclerae normal <YAZAN Melgar - Last Filed: 06/15/20 08:51> Chest: Chest palpation & inspection: normal inspection of the chest <YAZAN Melgar Last Filed: 06/15/20 08:51> Resp: Effort & Inspection: normal respiratory effort and no respiratory distress <YAZAN Melgar Last Filed: 06/15/20 08:51> Auscultation: clear to auscultation bilaterally <YAZAN Melgar Last Filed: 06/15/20 08:51> Cardio: Rate: regular rate <YAZAN Melgar - Last Filed: 06/15/20 08:51> Rhythm: regular rhythm <YAZAN Melgar Last Filed: 06/15/20 08:51> Heart sounds: Murmur heart sound present systolic <YAZAN Melgar Last Filed: 06/15/20 08:51> GI: Inspection: No distended <YAZAN Melgar Last Filed: 06/15/20 08:51> Palpation (GI): Soft to palpation, nontender and no guarding <YAZAN Melgar - Last Filed: 06/15/20 08:51> Neuro: General: patient oriented x3 <YAZAN Melgar Last Filed: 06/15/20 08:51> Cranial nerves: Yes CN's II-XII intact bilaterally and Yes Bilaterally intact EOM present <YAZAN Melgar Last Filed: 06/15/20 08:51> Objective Data Current Medications Generic Name Dose Route Start Last Admin Trade Name Freq PRN Reason Stop Dose Admin Acetaminophen 650 mg 06/13/20 23:17 Acetaminophen 325 Mg Tablet PO Q6H PRN Pain, Mild (Pain Scale 1-3) Atenolol 25 mg 06/14/20 09:00 06/15/20 07:41 Atenolol 25 Mg Tablet PO 25 mg DAILY ROSA Administration Protocol Atorvastatin Calcium 20 mg 06/14/20 21:00 06/14/20 19:32 Atorvastatin Calcium 20 Mg Tablet PO 20 mg BEDTIME ROSA Administration Docusate Sodium 100 mg 06/13/20 23:17 06/14/20 08:10 Docusate Sodium 100 Mg Capsule PO 100 mg DAILY PRN Administration Constipation Ondansetron HCl 4 mg 06/13/20 23:17 Ondansetron Hcl 4 Mg/2 Ml Vial IVPUSH Q8H PRN Nausea and Vomiting Pharmacy Consult 1 each 06/13/20 14:54 Consult Rx Perform Med Rec MISCELLANE ONCE PRN Consult order Sodium Chloride 3 ml 06/14/20 00:00 06/15/20 07:45 0.9 % Sodium Chloride Flush 3 Ml Syringe IVFLUSH 3 ml QSHIFT ROSA Administration <YAZAN Melgar Last Filed: 06/15/20 08:51> Labs CBC & Chem 7: : 06/15/20 06:00 06/15/20 06:00 <YAZAN Melgar - Last Filed: 06/15/20 08:51> Assessment and Plan (1) GI bleed: Status: Acute <YAZAN Melgar - Last Filed: 06/15/20 08:51> Assessment and Plan: This is an 84-year-old male with a history of hypertension, hyperlipidemia, AAA status post repair who presents to the emergency department with rectal bleeding Acute GI bleeding No further bleeding overnight Lower GI source. No diverticulosis/colitis noted on CT. H/H stable, no indication for transfusion. Stool occult negative Plan for colonoscopy today H/H stable -Hold ASA, avoid AC -GI following HTN. -Continue Atenolol -Hold Norvasc, valsartan in setting of GIB -Follow BP closely TCP Platelets stable. No previous baseline available Splenomegaly on CT -Hold ASA -Follow CBC HLD -Continue statin DVT prophylaxis-mechanical devices Code status-full code Attending Dr. Trevino <YAZAN Melgar - Last Filed: 06/15/20 08:51> Patient seen and examined independently and I was present during grace portion of E/M service. Agree with YAZAN Patten's history, physical, assessment, and plan. No further bleed, h/h stable. Scope today to determined further care. <Brayden Trevino MD - Last Filed: 06/15/20 13:07>
--- NOTE | 2020-06-15 12:32 | PM.ANESCN ---
History of Present Illness Consult details Consult date: 06/15/20 [facility] Past Medical History Medical History (Updated 06/13/20 @ 17:31 by YAZAN Melgar) Essential (primary) hypertension History of abdominal hernia Hyperlipidemia No known health problems Prostate cancer Functional capacity: independent ambulation Family History Family History Mother No problems noted. Father No problems noted. Family history: reviewed and not pertinent Surgical History Surgical History H/O radical prostatectomy History of abdominal aortic aneurysm (AAA) repair History of hand surgery History of knee replacement Social History Social History (Updated 06/13/20 @ 17:31 by YAZAN Melgar) Alcohol intake: current Alcohol intake frequency: 0-2 drinks per day Alcohol type: hard liquor Smoking Status: Never smoker service: Yes Current occupational status: retired [employer] Allergies Allergy/AdvReac Type Severity Reaction Status Date / Time No Known Allergies Allergy Verified 05/08/20 13:33 Active Medications: Current Medications Generic Name Dose Route Start Last Admin Trade Name Freq PRN Reason Stop Dose Admin Acetaminophen 650 mg 06/13/20 23:17 Acetaminophen 325 Mg Tablet PO Q6H PRN Pain, Mild (Pain Scale 1-3) Atenolol 25 mg 06/14/20 09:00 06/15/20 07:41 Atenolol 25 Mg Tablet PO 25 mg DAILY ROSA Administration Protocol Atorvastatin Calcium 20 mg 06/14/20 21:00 06/14/20 19:32 Atorvastatin Calcium 20 Mg Tablet PO 20 mg BEDTIME ROSA Administration Docusate Sodium 100 mg 06/13/20 23:17 06/14/20 08:10 Docusate Sodium 100 Mg Capsule PO 100 mg DAILY PRN Administration Constipation Ondansetron HCl 4 mg 06/13/20 23:17 Ondansetron Hcl 4 Mg/2 Ml Vial IVPUSH Q8H PRN Nausea and Vomiting Pharmacy Consult 1 each 06/13/20 14:54 Consult Rx Perform Med Rec MISCELLANE ONCE PRN Consult order Sodium Biphosphate/Sodium Phosphate 133 ml 06/15/20 10:29 Sodium Phosphate,[place]-Dibasic 133 Ml Enema [place] ONCE PRN Poor Colonoscopy Prep Results Sodium Chloride 3 ml 06/14/20 00:00 06/15/20 07:45 0.9 % Sodium Chloride Flush 3 Ml Syringe IVFLUSH 3 ml QSHIFT [facility] Administration Home Medications Medication Instructions Recorded Confirmed Last Taken Type [id number]-j-[id number] [Beano] 300 unit PO TID 06/13/20 06/13/20 06/12/20 History aspirin 81 mg PO DAILY 06/13/20 06/13/20 06/13/20 History Physical Exam Vital Signs: Vital Signs: Last Vital Signs Temp 98.4 F 06/15/20 10:31 Pulse 64 06/15/20 10:31 Resp 16 06/15/20 10:31 BP 115/60 06/15/20 10:31 Pulse Ox 96 06/15/20 10:31 Body Mass Index 27.3 Const: General: cooperative, no acute distress and awake Nutritional Appearance: overweight Orientation/consciousness: oriented to person, oriented to place and oriented to time Neuro: General: oriented to person, oriented to place and oriented to time Results Labs Result diagrams: 06/15/20 06:00 06/15/20 06:00 Labs: Abnormal lab results 06/15/20 06/15/20 Range/Units 06:00 06:00 RBC 3.21 L (4.60-5.80) X10*6/uL Hgb 11.0 L (14.0-18.0) g/dl Hct 31.7 L (42-52) % MCV 98.8 H (80-98) fL MCH 34.3 H (27.0-33.0) pg Plt Count 83 L (160-400) X10*3/uL Lymph % (Auto) 18.6 L (20-40) % [place] % (Auto) 14.0 H (2-11) % Lymph # (Auto) 0.9 L (1.2-4.9) X10*3/uL BUN 17 H (9-16) mg/dL Short CBC 06/15/20 Range/Units 06:00 WBC 5.1 (4.8-10.8) X10*3/uL Hgb 11.0 L (14.0-18.0) g/dl Hct 31.7 L (42-52) % Plt Count 83 L (160-400) X10*3/uL BMP 06/15/20 06:00 Sodium 140 Potassium 3.7 Chloride 106 Carbon Dioxide 24 BUN 17 H Creatinine 1.13 Calcium 8.5 All other labs normal.
--- NOTE | 2020-06-15 12:41 | PM.OP ---
Brief Operative Note Date of Service: 06/15/20 Pre-op diagnosis: Lower GI bleed Post-op diagnosis: other (Colon polyp, Diverticulosis, Internal/External hemorrhoids, Ileitis) Procedure: Colonoscopy to cecum and TI with biopsies, and biospy/removal of polyp Surgeon: Ron Vincent Anesthesia: MAC Estimated blood loss (mL): 4.0 Pathology: other (A. Terminal ileum B. Colon polyp at 30cm) Condition: stable Disposition: PACU
--- NOTE | 2020-06-15 12:43 | PM.EVENT ---
Event Note Date of Service: 06/15/20 Event Note: [facility] note dictated Findings: 1. Slight ileitis with some < 10mm erosions in the TI--biopsies taken--doubt Crohn's 2. Approx. 4-5 mm polyp at 30cm biopsied and removed 3. Sigmoid diverticulosis 4. Ulcerated internal hemorrhoids 5. External hemorrhoidal tissue 6. No active bleeding nor old blood. Rec: Advance diet, check path, D/C later today if stable. His bleeding may have been from the diverticulosis and/or the ulcerated internal hemorrhoids. Avoid aspirin and NSAIDs for 2 weeks. Use Anucort with HC for the hemorrhoids as needed. D/W . Thanks
--- NOTE | 2020-06-15 13:14 | MHC.CM.PN ---
NURSE [employer] ADMINISTRATOR NOTE ELECTRONIC MEDICAL RECORD REVIEWED ALONG WITH CASE [id number] WITH STAFF NURSE AND ON MULTIPLE DISCIPLIANRY ROUNDS, PATIENT IS S/P COLONOSCOPY TO CECUM, plan of care -aedvance diet today , check path report and possible dis harged home today with no servciesw needed discharge plan possible discharge later tonight home no services needed per initial assessment and per hospitlaist durning multiple disciplainry rounds, patient to follow up with his pcp dr corbett for post hospitla discharge and follow up with dr joshua transportastion by his remy
--- NOTE | 2020-06-15 15:54 | P.DS_ITS ---
DS: Providers Provider Date of Service: 06/15/20 <YAZAN Mlegar - Last Filed: 06/15/20 15:59> 06/18/20 <Brayden Trevino MD - Last Filed: 06/18/20 15:08> Date of admission: 06/13/20 17:04 <YAZAN Melgar - Last Filed: 06/15/20 15:59> Primary care physician: Coleman Hutson MD <YAZAN Melgar - Last Filed: 06/15/20 15:59> Consults: 06/13/20 17:04 Consult to Gastroenterology Routine Consulting Provider: Ron Vincent Reason for consultation: gi bleeding Has provider been notified: No <YAZAN Melgar - Last Filed: 06/15/20 15:59> DS: Diagnosis Discharge Diagnosis (1) GI bleed: Status: Acute <YAZAN Melgar - Last Filed: 06/15/20 15:59> DS: Medications Discharge Medications Home Medications: Home Medications Medication Instructions Recorded Confirmed dopvq-v-[id number] [Beano] 300 unit PO TID 06/13/20 06/13/20 aspirin 81 mg PO DAILY 06/13/20 06/13/20 Previous Rx's Medication Instructions Recorded atorvastatin 20 mg tablet 20 mg PO DAILY #90 tab 01/17/20 amlodipine 10 mg tablet 10 mg PO DAILY #90 tab 05/30/20 atenolol 25 mg tablet 25 mg PO DAILY #90 tab 05/30/20 valsartan 160 mg tablet 160 mg PO DAILY #90 tab 06/14/20 <YAZAN Melgar - Last Filed: 06/15/20 15:59> DS: Summary Hospital Course Hospital Course: This is an 84-year-old male who presents to the emergency department today with complaints of rectal bleeding. Last evening around 22:00 he had the first episode of rectal bleeding. He reports 4 episodes of bright red blood per rectum. This blood was not mixed with stool. He denies any associated abdominal pain, diarrhea, fever, chills. He denies any previous history of GI bleeding. He takes a baby aspirin at home daily but denies the use of any anticoagulation or NSAIDs. CT scan of the abdomen did not show any acute pathology to account for bleeding. H/H was stable compared to previous from 2019. Stool occult was checked and was negative. He does report having to strain recently when having bowel movements. Last colonoscopy was 15 years ago and was reportedly normal. He denies any known history of hemorrhoids. Given multiple episodes of rectal bleeding, the decision was made to admit him GI bleeding The patient was admitted to the medical-surgical floor. He was started on a clear liquid diet. He had no further episodes of bleeding. H/H remained stable and there was no need for blood transfusion. He was seen in consultation by Gastroenterology who recommended inpatient colonoscopy. Colonoscopy on day of discharge with findings below. GI recommended avoiding aspirin and NSAIDs for the next 2 weeks. Use Anucort with HC for the hemorrhoids as needed. Underwent colonoscopy 06/15 Findings: 1. Slight ileitis 2. polyp biopsied and removed 3. Sigmoid diverticulosis 4. Ulcerated internal hemorrhoids 5. External hemorrhoidal tissue 6. No active bleeding nor old blood. Hypertension Blood pressure has been on the lower side. Norvasc and losartan have been on hold. Should continue to hold blood pressure medication until follow-up with PCP in 1-2 weeks. Attending Attestation: Patient seen and examined independently and I was present during grace portion of E/M service, on the day of discharge. Agree with YAZAN Patten's history, physical, assessment, and plan. H/h stable, tolerating diet. D/c Home. <YAZAN Melgar - Last Filed: 06/15/20 15:59> Time Spent with Patient Time attestation: Total time spent providing and/or coordinating discharge services: <YAZAN Melgar - Last Filed: 06/15/20 15:59> Discharge coordination time: Greater than 30 minutes <YAZAN Melgar - Last Filed: 06/15/20 15:59> Physical Exam Vital Signs: Vital Signs: Last Vital Signs Temp 97.8 F 06/15/20 15:33 Pulse 67 06/15/20 15:33 Resp 15 06/15/20 15:33 BP 112/52 L 06/15/20 15:33 Pulse Ox 93 06/15/20 15:33 Body Mass Index 27.3 <YAZAN Melgar - Last Filed: 06/15/20 15:59> Const: General: cooperative, comfortable, no acute distress, alert and awake <YAZAN Melgar - Last Filed: 06/15/20 15:59> Nutritional Appearance: well nourished <YAZAN Melgar - Last Filed: 06/15/20 15:59> Orientation/consciousness: patient oriented x3 <YAZAN Melgar - Last Filed: 06/15/20 15:59> HENMT: Head: Yes normocephalic and Yes atraumatic <YAZAN Melgar - Last Filed: 06/15/20 15:59> Eyes: Sclerae: sclerae normal <YAZAN Melgar - Last Filed: 06/15/20 15:59> Chest: Chest palpation & inspection: normal inspection of the chest <YAZAN Melgar - Last Filed: 06/15/20 15:59> Resp: Effort & Inspection: normal respiratory effort and no respiratory distress <YAZAN Melgar - Last Filed: 06/15/20 15:59> Auscultation: clear to auscultation bilaterally <YAZAN Melgar - Last Filed: 06/15/20 15:59> Cardio: Rate: regular rate <YAZAN Melgar - Last Filed: 06/15/20 15:59> Rhythm: regular rhythm <YAZAN Melgar - Last Filed: 06/15/20 15:59> Heart sounds: Murmur heart sound present systolic <YAZAN Melgar - Last Filed: 06/15/20 15:59> GI: Inspection: No distended <YAZAN Melgar - Last Filed: 06/15/20 15:59> Palpation (GI): Soft to palpation, nontender and no guarding <YAZAN Melgar - Last Filed: 06/15/20 15:59> Neuro: General: patient oriented x3 <YAZAN Melgar - Last Filed: 06/15/20 15:59> Cranial nerves: Yes CN's II-XII intact bilaterally and Yes Bilaterally intact EOM present <YAZAN Melgar - Last Filed: 06/15/20 15:59> DS: Data Data Completed and Pending Pending studies at discharge: Pending at discharge 06/15/20 12:15 Surgical [PTH] Routine <YAZAN Melgar - Last Filed: 06/15/20 15:59> Labs on day of discharge: Laboratory Results - last 24 hr 06/15/20 06/15/20 06:00 06:00 WBC 5.1 RBC 3.21 L Hgb 11.0 L Hct 31.7 L MCV 98.8 H MCH 34.3 H MCHC 34.7 RDW 11.9 Plt Count 83 L MPV 11.2 Immature Gran % (Auto) 0.4 Neut % (Auto) 63.0 Lymph % (Auto) 18.6 L [place] % (Auto) 14.0 H Eos % (Auto) 3.6 Baso % (Auto) 0.4 Lymph # (Auto) 0.9 L [place] # (Auto) 0.7 Eos # (Auto) 0.2 Baso # (Auto) 0.0 Abs Immat Gran (auto) 0.02 Absolute Neuts (auto) 3.2 Absolute Nucleated RBC 0.000 Nucleated RBC % (auto) 0.0 Sodium 140 Potassium 3.7 Chloride 106 Carbon Dioxide 24 Anion Gap 14 BUN 17 H Creatinine 1.13 Estim Creat Clear Calc 49.5 Estimated GFR > 60 Random Glucose 89 Calcium 8.5 <YAZAN Melgar - Last Filed: 06/15/20 15:59> Discharge Plan Discharge Patient Disposition: Home, Self-Care <YAZAN Melgar - Last Filed: 06/15/20 15:59> Referrals: Coleman Hutson MD [Primary Care Provider] - <YAZAN Melgar - Last Filed: 06/15/20 15:59> Discharge Medications: New hydrocortisone acetate [Anucort-HC] 25 mg suppository 25 mg IN DAILY PRN (Reason: hemorrhoids) Qty: 24 RF: 0 Continued atorvastatin 20 mg tablet 20 mg PO DAILY Qty: 90 RF: 1 atenolol 25 mg tablet 25 mg PO DAILY Qty: 90 RF: 0 dlxsl-n-hdteqqefwifgi Tablet 300 unit PO TID RF: 0 Held amlodipine 10 mg tablet 10 mg PO DAILY Qty: 90 RF: 0 Hold Instructions: Resume on 06/22/20. Follow up with PCP to recheck blood pressure valsartan 160 mg tablet 160 mg PO DAILY Qty: 90 RF: 1 Hold Instructions: Resume on 06/22/20. Follow up with PCP for repeat blood pressure check aspirin 81 mg Tablet 81 mg PO DAILY RF: 0 Hold Instructions: Resume on 06/29/20. hold for 2 weeks <YAZAN Melgar - Last Filed: 06/15/20 15:59> Discharge Orders: Discharge Order (Routine); Ordered 06/15/20 Ordered By: Vivien Santos <YAZAN Melgar - Last Filed: 06/15/20 15:59> Activity on Discharge: As tolerated <YAZAN Melgar - Last Filed: 06/15/20 15:59> As tolerated <Brayden Trevino MD - Last Filed: 06/18/20 15:08> Stand Alone Forms: Patient Portal Discharge page <YAZAN Melgar - Last Filed: 06/15/20 15:59> Care Plan Goals: see below <YAZAN Melgar - Last Filed: 06/15/20 15:59> Health Concerns: GI bleeding Soft blood pressure <YAZAN Melgar - Last Filed: 06/15/20 15:59> Plan of Treatment: GI bleeding - colonoscopy showed a polyp that biopsied and removed, Sigmoid diverticulosis, Ulcerated internal hemorrhoids, External hemorrhoidal tissue. Bleeding was likely related to diverticulosis or hemorrhoids. Avoid aspirin and NSAIDs (medications like ibuprofen, motrin etc) You can use anucort for hemmoroidal pain. HTN - your blood pressure was on the lower side. Please do not take your losartan or Norvasc until you follow-up with your PCP. Please call your PCP to schedule a follow-up appointment. <YAZAN Melgar - Last Filed: 06/15/20 15:59> Discharge Date/Time: 06/15/20 16:45 <YAZAN Melgar - Last Filed: 06/15/20 15:59>
--- NOTE | 2020-06-15 16:15 | MHC.CM.PN ---
NURSE REGISTERED NURSE POST PARTUM NOTE PATIENT HAS BEEN DISCHARGED HOME NO SERVICES
--- NOTE | 2020-06-15 20:41 | OP_ITS ---
SURGEON: Ron Vincent MD INDICATIONS: The patient presents for evaluation of lower GI bleeding. Full consent has been obtained from him for this, including risks of bleeding and perforation. PREOPERATIVE DIAGNOSIS: Lower GI bleeding. POSTOPERATIVE DIAGNOSIS: PROCEDURE PERFORMED: Colonoscopy to the cecum and terminal ileum with biopsies, and biopsy and removal of polyp. ESTIMATED BLOOD LOSS: COMPLICATIONS: ANESTHESIA: Monitored anesthesia care. ASSISTANTS: SPECIMENS: POSTOPERATIVE DIAGNOSES: Lower GI bleeding, ileitis, small colon polyp, diverticulosis, ulcerated internal hemorrhoids, external hemorrhoids. DESCRIPTION OF PROCEDURE: The patient was placed in the left lateral decubitus position. The digital rectal exam revealed some nonbleeding external hemorrhoidal tissue. The Olympus video pediatric colonoscope was entered into the rectum and advanced to the cecum with the assistance of abdominal wall pressure. Once in the cecum, I did identify normal-appearing cecal pouch with normal-appearing ileocecal valve. The terminal ileum was cannulated. This was cannulated for at least 5 or 10 cm. There was some small scattered erosions within the terminal ileum, but the majority of the mucosa appeared normal. Biopsies were obtained. There were no ulcerations. The scope was withdrawn back in the colon. The entire cecum and ileocecal valve appeared normal. At 30 cm, was an approximately 4 or 5 mm grossly adenomatous polyp, which was biopsied and completely removed with cold biopsy forceps. I did not visualize any other polyps, colitis, nor angiodysplasia. There was a mild amount of sigmoid diverticulosis. I did not visualize any sign of active bleeding nor old blood in the colon. In the rectum, scope was retroflexed visualizing internal hemorrhoidal tissue with some ulcerations, but no bleeding. The scope was straightened out and withdrawn from the patient. He tolerated the procedure well and was returned to recovery area in stable condition. IMPRESSION: 1. Small colon polyp, status post biopsy and removal. 2. Mild ileitis of unclear etiology. 3. Diverticulosis. 4. Ulcerated internal hemorrhoids. 5. External hemorrhoids. PLAN: The results of the biopsy will be checked. Given his presentation, I do not think the terminal ileum findings nor small colon polyp would be playing a role in his symptoms of bleeding. I doubt he has Crohn disease and the changes in the terminal ileum may have been related to the bowel prep. He did not have any preceding symptoms of Crohn disease. We did review that the diverticulosis may have been the cause of his bleeding. However, the ulcerated hemorrhoids may have also accounted for some bleeding as well. At this point, I would recommend advancing his diet. I think he can be discharged to home later today as long as things remain stable. He should avoid all aspirin and NSAIDs for at least 2 weeks. He should use some Anucort or Preparation H suppositories as needed for the hemorrhoidal findings and any associated bleeding. This has all been discussed with his . MD TALHA Montaño/LORNE / [phone]
== END 2020-06-15 16:45 | disposition home or self-care (01) ==
LOC: HO.ED 16:00 → HO.EDOVER 17:42 → HO.S3 06-14 07:51
PROVIDERS: Internal Medicine; Physician Assistant Medical; Admitting Provider Internal Medicine; Emergency Provider Emergency Medicine; PCP Internal Medicine; Visit Provider Family Medicine
PROC: 0DJD8ZZ Inspection of Lower Intestinal Tract, Via Natural or Artificial Opening Endoscopic (ICD-10-PCS; CPT 45378; principal; 2020-06-15 10:50)
DX: K52.9 Noninfective gastroenteritis and colitis, unspecified (principal); D12.6 Benign neoplasm of colon, unspecified; K64.4 Residual hemorrhoidal skin tags; K64.8 Other hemorrhoids; D69.6 Thrombocytopenia, unspecified; R16.1 Splenomegaly, not elsewhere classified; I10 Essential (primary) hypertension; K46.9 Unspecified abdominal hernia without obstruction or gangrene; E78.5 Hyperlipidemia, unspecified; C61 Malignant neoplasm of prostate; Z20.822 Contact with and (suspected) exposure to COVID-19; Z79.899 Other long term (current) drug therapy
CPT/HCPCS: 45380; 36415; 74176; 80048; 80076; 82272; 85025; 85610; 86850; 86900; 87635; 88305; 99218; 99284

== ENCOUNTER 2020-06-25 09:00 | Outpatient (RCR) | payer MEDICARE, SELFPAY ==
--- NOTE | 2020-05-18 13:55 | MHC.PT.EP ---
[facility] [place] Office [address] [facility] [address] Lissette Hughes [address] [phone] F: [phone] F: [phone] F: [phone] F: [phone] Physical Therapy Plan of Care Date of Evaluation: 05/18/20 Date of Surgery: NA Diagnosis: TROCHANTERIC BURSITIS OF THE HIPS Assessment: Pt IS 84 YO M REFERRED TO PT FROM DR MONTGOMERY WITH TROCHANTERIC BURSITIS. Pt PRESENTS WITH C/O PAIN L LAT THIGH OF INSIDIOUS ONSET WITH SOME HX OF L LE SWELLING (?) AND L LE PARESTHESIA (?REFERRED FROM BACK). Pt WITH TTP L ITB WITH TIGHTNESS NOTED. OVERALL GOOD ROM AND STRENGTH L LE BUT WITH SOME LIMP WITH GT. SHOULD BENEFIT FROM PT TO ADDRESS THESE ISSUES Frequency and Duration: The patient will be seen 2X/WK X 6 WKS Short Term Goals: 1. I HEP WITH DC EX PLAN 2. 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 LESS LIMP WITH GT 2. DECREASED L HIP/LE PAIN AT LEAST 50% WITH ADLS 3. IMPROVED LEFI Treatment Plan: Modalities to reduce pain, spasms and effusion. Manual therapy to restore motion and function. Therapeutic exercise to improve strength and flexibility. Neuromuscular re-education for posture and balance. Therapeutic activities to return to functional activities of daily living. Electronically signed by: ROSETTA PATTERSON PT Please sign and return to therapist. Thank you for your referral.
--- NOTE | 2020-06-25 10:29 | MHC.PT.DC ---
[facility] [place] Office [place] Office [place] Office [address] Lissette Hughes [address] [facility] [phone] F: [phone] F: [phone] F: [phone] F: [phone] Physical Therapy Discharge Report Diagnosis: TROCHANTERIC BURSITIS OF THE HIPS Date of Surgery: NA Date of Evaluation: 05/18/20 Date of Discharge: 06/25/20 Treatments to Date: 10 Cancellations to Date: No Shows to Date: Discharge Status: Achieved Goals Improved Function Independent with HEP Discharge Summary: HAS MET PT GOALS, LEFI=56/ ( AT SOC) Electronically signed by: ROSETTA PATTERSON PT Please sign and return to therapist. Thank you for your referral.
== END 2020-06-25 10:34 | disposition other institution (70) ==
LOC: HO.PT 09:00
PROVIDERS: PCP Internal Medicine; Visit Provider Internal Medicine
DX: M70.61 Trochanteric bursitis, right hip (principal); M70.62 Trochanteric bursitis, left hip
CPT/HCPCS: 97110; 97140; 97162; 97530

== ENCOUNTER 2020-07-03 07:27 | Outpatient (REF) | payer MEDICARE, SELFPAY ==
[2020-07-03 08:13] LABS: Hematocrit 35.9 % (42-52); Hemoglobin 12.3 g/dl (14.0-18.0); Mean Corpuscular HGB Conc 34.3 g/dl (31.0-36.0); Mean Corpuscular Hemoglobin 34.5 pg (27.0-33.0); Mean Corpuscular Volume 100.6 fL (80-98); Mean Platelet Volume 10.6 fL (9.4-12.4); Red Blood Count 3.57 X10*6/uL (4.60-5.80); Red Cell Distribution Width 12.2 % (11.0-16.0); White Blood Count 4.9 X10*3/uL (4.8-10.8)
[2020-07-03 08:24] LABS: Platelet Count 70 X10*3/uL (160-400)
== END 2020-07-03 07:28 | disposition home or self-care (01) ==
LOC: HO.LAB 07:27
PROVIDERS: PCP Internal Medicine; Visit Provider Internal Medicine
DX: K92.2 Gastrointestinal hemorrhage, unspecified (principal)
CPT/HCPCS: 36415; 85027

== ENCOUNTER 2021-07-04 07:01 | Outpatient (REF) | payer MEDICARE, SELFPAY ==
[2021-07-04 07:33] LABS: Hemoglobin 11.6 g/dl (14.0-18.0); Mean Corpuscular HGB Conc 34.1 g/dl (31.0-36.0); Mean Corpuscular Hemoglobin 34.9 pg (27.0-33.0); Mean Corpuscular Volume 102.4 fL (80.0-98.0); Mean Platelet Volume 10.5 fL (9.4-12.4); Platelet Count 73 X10*3/uL (160-400); Red Blood Count 3.32 X10*6/uL (4.60-5.80); Red Cell Distribution Width 11.8 % (11.0-16.0); White Blood Count 5.1 X10*3/uL (4.8-10.8)
[2021-07-04 08:03] LABS: Alanine Aminotransferase 10 U/L (0-40); Albumin Level 3.6 g/dL (3.5-5.0); Alkaline Phosphatase 81 U/L (39-117); Anion Gap 10 (12-20); Aspartate Amino Transferase 16 U/L (5-37); Bilirubin Direct 0.3 mg/dL (0.0-0.5); Bilirubin Total 0.7 mg/dL (0.0-1.0); Blood Urea Nitrogen 16 mg/dL (9-16); Carbon Dioxide 26 mmol/L (22-29); Chloride 108 mmol/L (96-108); Cholesterol 98 mg/dL; Estimated Glomerular Filt Rate 55; Glucose Random 107 mg/dL (60-115); HDL Cholesterol 28 mg/dL; LDL Cholesterol Calculated 53 mg/dl; Potassium 4.2 mmol/L (3.3-5.1); Sodium 140 mmol/L (135-145); Total Protein 5.8 g/dL (6.5-8.0); Triglycerides 86 mg/dL
[2021-07-04 08:24] LABS: Thyroid Stimulating Hormone 1.88 uIU/mL (0.32-4.0)
== END 2021-07-04 07:02 | disposition home or self-care (01) ==
LOC: HO.LAB 07:01
PROVIDERS: PCP Internal Medicine; Visit Provider Internal Medicine
DX: C61 Malignant neoplasm of prostate (principal); E78.5 Hyperlipidemia, unspecified; I10 Essential (primary) hypertension
CPT/HCPCS: 36415; 80048; 80061; 80076; 84443; 85027

== ENCOUNTER 2021-09-12 10:15 | Outpatient (REF) | payer MEDICARE, SELFPAY ==
[2021-09-12 10:37] LABS: MANUAL DIFF FLAG NO
[2021-09-12 10:46] LABS: Basophils Percent Auto 0.3 % (0-2); Eosinophils Absolute Auto 0.2 X10*3/uL (0.0-0.4); Eosinophils Percent Auto 2.8 % (0-4); Hematocrit 36.5 % (42.0-52.0); Hemoglobin 12.4 g/dl (14.0-18.0); Imm Gran Abs Auto 0.02 X10*3/uL (0.00-0.03); Imm Gran Pct Auto 0.3 % (0.0-0.4); Lymphocytes Absolute Auto 0.9 X10*3/uL (1.2-4.9); Lymphocytes Percent Auto 11.7 % (20-40); Mean Corpuscular Hemoglobin 34.3 pg (27.0-33.0); Mean Corpuscular Volume 100.8 fL (80.0-98.0); Mean Platelet Volume 9.8 fL (9.4-12.4); Monocytes Absolute Auto 0.7 X10*3/uL (0.1-1.2); Monocytes Percent Auto 9.5 % (2-11); Neutrophils Absolute Auto 5.7 x10*3/uL (2.0-8.3); Neutrophils Percent Auto 75.4 % (45-73); Platelet Count 119 X10*3/uL (160-400); Red Blood Count 3.62 X10*6/uL (4.60-5.80); Red Cell Distribution Width 11.9 % (11.0-16.0); White Blood Count 7.6 X10*3/uL (4.8-10.8)
[2021-09-12 11:13] LABS: Iron 78 mcg/dL (45-160); Percent Iron Saturation 31 % (15-50); Total Iron Binding Capacity 248 mcg/dL (228-428); Unsaturated Iron Binding 170 ug/dL
[2021-09-12 11:34] LABS: Ferritin 201 ng/mL (20-250)
[2021-09-12 11:48] LABS: Folate 9.6 ng/mL (> or = 4.0); Vitamin B12 368 pg/mL (200-900)
[2021-09-14 14:36] LABS: Immunoglobulin A 187 mg/dL (70-320)
[2021-09-16 14:46] LABS: Gliadin Deamidated IgA Ab 1.3 U/mL; Gliadin Deamidated IgG Ab <1.0 U/mL
[2021-09-17 14:56] LABS: Transglutaminase Ab IgG <1.0 U/mL; Transglutaminase IgA <1.0 U/mL
[2021-09-19 14:07] LABS: Endomysial IgA Antibody Negative (Negative)
== END 2021-09-12 10:16 | disposition home or self-care (01) ==
LOC: HO.LAB 10:15
PROVIDERS: PCP Internal Medicine; Visit Provider Internal Medicine
DX: R68.81 Early satiety (principal); R63.4 Abnormal weight loss; R10.84 Generalized abdominal pain; D64.9 Anemia, unspecified
CPT/HCPCS: 36415; 82607; 82728; 82746; 82784; 83540; 85025; 86231; 86258; 86364

== ENCOUNTER 2021-09-20 12:36 | Outpatient (REF) | payer MEDICARE, SELFPAY ==
--- NOTE | ~2021-09-20 | US_ITS ---
EXAMINATION: US ABDOMEN COMPLETE CLINICAL INFORMATION: Abdominal pain. COMPARISON: CT abdomen and pelvis 06/13/2020. TECHNIQUE: Real-time imaging of the abdominal viscera. Exam is limited due to body habitus. FINDINGS: PANCREAS: Not well visualized ABDOMINAL AORTA: Not well visualized INFERIOR VENA CAVA: Not well visualized LIVER: The liver echotexture is slightly increased and heterogeneous. No focal liver lesion or biliary duct dilatation. GALLBLADDER: There is a gallstone in the neck of the gallbladder measuring 1.5 cm. The gallbladder wall is thickened measuring 0.7 cm. The automation technologist does not report patient is tender over the gallbladder. COMMON BILE DUCT: Normal in caliber measuring 0.5 cm in diameter. RIGHT KIDNEY: 11.2 No hydronephrosis. No renal calculi or focal parenchymal lesions. The kidney measures 11.2 cm in maximum dimension. LEFT KIDNEY: There are 2 left renal cysts measuring 1.8 x 2 x 1.8 cm and 2.6 x 2.3 x 2.2 cm in the upper pole. No hydronephrosis or renal calculi. The kidney measures 10.7 cm in maximum dimension. SPLEEN: The spleen is enlarged. The spleen measures 15 cm in maximum dimension. There is a 2 cm splenule. FREE FLUID: None. US/US abdomen complete IMPRESSION: Slightly increased heterogeneous liver echotexture questionable for hepatocellular disease. Gallstone in the gallbladder. Gallbladder wall appears thickened. This uncertain whether this is related to liver disease. If there is clinical concern of cholecystitis, HIDA scan may be helpful. Enlarged spleen. Limited visualization of pancreas, aorta and IVC. Left renal cysts.
== END 2021-09-20 12:37 | disposition home or self-care (01) ==
LOC: HO.US 12:36
PROVIDERS: Visit Provider Internal Medicine
DX: R10.84 Generalized abdominal pain (principal)
CPT/HCPCS: 76700

== ENCOUNTER 2021-09-26 12:39 | Day surgery (SDC) | payer MEDICARE, SELFPAY ==
--- NOTE | 2021-09-25 10:30 | HO.ANESPROP2 ---
Documented by User: Mari Laguna NP 09/25/21 10:36 HPI - Anesthesia Eval Consult details Narrative: 86yo M for Upper Endoscopy [facility] Active Problems Active Problems: All Active Problems (Updated 09/25/21 @ 09:34 by Clementina Ceja RN) Nephrolithiasis (Acute) History of total right knee replacement (Acute) Tendinitis in region of greater trochanter of femur (Acute) GERD (gastroesophageal reflux disease) (Acute) Prostate cancer (Acute) Hyperlipidemia (Acute) Essential (primary) hypertension (Acute) Past Medical History Medical History Essential (primary) hypertension History of abdominal hernia Hyperlipidemia Prostate cancer Family History Family History Mother No problems noted. Father No problems noted. Surgical History Surgical History H/O radical prostatectomy History of abdominal aortic aneurysm (AAA) repair History of hand surgery History of knee replacement Social History Social History Housing: House Are you a primary complex care nurse to a significant other at home: No Do you presently have visiting nurse or other home services: No Alcohol intake: current Alcohol intake frequency: 0-2 drinks per day Alcohol type: hard liquor Patient Tobacco Use Status: Never used Tobacco e-Cigarette/Vaping Use: Never Used Second Hand Smoke Exposure: No Advance Directives: No Advance Directives Information Provided: Yes service: Yes Current occupational status: retired Cognitive needs: No Hearing needs: Yes (Hearing aides) Vision needs: No Meds Allergies Allergy/AdvReac Type Severity Reaction Status Date / Time No Known Allergies Allergy Verified 07/03/21 10:02 Exam Exam Date and Time: September 25, 2021 1030 Pertinent Lab Results Pertinent Lab Results: Laboratory Tests 07/04/21 09/12/21 07:16 10:35 WBC 7.6 Hgb 12.4 L Hct 36.5 L Plt Count 119 L D Sodium 140 Potassium 4.2 Chloride 108 Carbon Dioxide 26 BUN 16 Creatinine 1.26 Narrative Narrative: US abdomen complete 09/2021 IMPRESSION: Slightly increased heterogeneous liver echotexture questionable for hepatocellular disease. Gallstone in the gallbladder. Gallbladder wall appears thickened. This uncertain whether this is related to liver disease. If there is clinical concern of cholecystitis, HIDA scan may be helpful. Enlarged spleen. Limited visualization of pancreas, aorta and IVC. Left renal cysts. CT abdomen pelvis wo con 05/2020 IMPRESSION: ? 1. Gallstone 1.1 cm. Question early pericholecystic inflammatory change. No gallbladder dilatation or ductal dilatation or visible choledocholithiasis.? ? 2. Distal abdominal aortic aneurysm 4.6 cm. (Previously repaired) ? 3. No bowel obstruction or focal inflammatory changes in bowel or mesentery. No ascites or fluid collection. ? 4. Splenomegaly 14.5 cm. Liver normal in size. Pancreas unremarkable. No hydronephrosis. Assessment and Plan Assessment Anesthesia Assessment: Chart Reviewed Documented by User: Aziza Haider MD 09/26/21 13:46 [facility] Past Medical History Medical History Essential (primary) hypertension History of abdominal hernia Hyperlipidemia Prostate cancer Family History Family History Mother No problems noted. Father No problems noted. Surgical History Surgical History H/O radical prostatectomy History of abdominal aortic aneurysm (AAA) repair History of hand surgery History of knee replacement History of Problems with Anesthesia: No Social History Social History Housing: House Are you a primary complex care nurse to a significant other at home: No Do you presently have visiting nurse or other home services: No Alcohol intake: current Alcohol intake frequency: 0-2 drinks per day Alcohol type: hard liquor Patient Tobacco Use Status: Never used Tobacco e-Cigarette/Vaping Use: Never Used Second Hand Smoke Exposure: No Advance Directives: No Advance Directives Information Provided: Yes service: Yes Current occupational status: retired Cognitive needs: No Hearing needs: Yes (Hearing aides) Vision needs: No Meds Allergies Allergy/AdvReac Type Severity Reaction Status Date / Time No Known Allergies Allergy Verified 07/03/21 10:02 Exam Airway Mallampati Class: III TM Dist: >3cm Neck ROM: Full Loose/Missing/Broken Teeth: No Heart: RRR Lungs: CTA Assessment and Plan Assessment Anesthesia Assessment: Anesthesia Plan Discussed Final Anesthetic Review History of Problems with Anesthesia: No NPO: Yes ASA Class: III Final Preanesthetic Review: Meds/Allgs Chart Reviewed, Consent Obtained/Reviewed and Anes Risks/Benef Reviewed Patient Risk: Intermediate Procedure Risk: Intermediate Anesthetic Plan Anesthetic Plan: MAC: Disposition: Standard PACU
[2021-09-26 13:23] VITALS: BMI 23.8
[2021-09-26 13:29] VITALS: BP 141/57; PULSE 64; RESP 18; TEMP 36.4; O2SAT 98
[2021-09-26] MEDS: Lactated Ringers 1,000 ML 100 ML IVCONT (13:32)
[2021-09-26 15:04] VITALS: BP 92/44; PULSE 55; RESP 16; TEMP 36.2; O2SAT 97
--- NOTE | 2021-09-26 15:10 | P.BOP_ITS ---
Brief Operative Note Date of Service: 09/26/21 Pre-op diagnosis: Abdominal discomfort, weight loss, early satiety Post-op diagnosis: other (Hiatal hernia) Procedure: EGD with biopsies Surgeon: Ron Vincent Anesthesia: MAC Was an Reporting Process Consultant used for this Procedure?: No Estimated blood loss (mL): 2.0 Pathology: other (A. Descending duodenum B. Gastric antrum) Condition: stable Disposition: PACU
[2021-09-26 15:19] VITALS: BP 121/56; PULSE 59; RESP 18; TEMP 36.2; O2SAT 98
--- NOTE | 2021-09-27 09:11 | OP_ITS ---
SURGEON: Ron Vincent MD INDICATIONS: The patient presents for evaluation of abdominal discomfort, early satiety, and weight loss. Full consent has been obtained from him for this, including risks of bleeding and perforation. PREOPERATIVE DIAGNOSIS: POSTOPERATIVE DIAGNOSIS: PROCEDURE PERFORMED: Esophagogastroduodenoscopy with biopsies. ESTIMATED BLOOD LOSS: COMPLICATIONS: ANESTHESIA: Monitored anesthesia care. ASSISTANTS: SPECIMENS: PREOPERATIVE DIAGNOSES: Abdominal discomfort, weight loss, and early satiety. POSTOPERATIVE DIAGNOSES: Abdominal discomfort, weight loss, and early satiety, rule out celiac disease, rule out Helicobacter pylori, hiatal hernia. DESCRIPTION OF PROCEDURE: The patient was placed in the left lateral decubitus position. The Olympus video gastroscope was passed in the posterior oropharynx and upper esophagus under direct vision. The scope was passed slowly to the distal esophagus. The gastroesophageal junction appeared at 35 cm. There was some minimal irregularity, but no esophagitis nor any definitive evidence of Coleman's mucosa. There was a small hiatal hernia. The scope was advanced to the pylorus and the duodenum was cannulated to the descending portion. The duodenum including the bulb appeared normal without mass or ulceration. Biopsies were obtained from the 2nd and 3rd portions of the duodenum. The scope was withdrawn back into the stomach. The gastric antrum and body appeared normal with good peristalsis. Biopsies were obtained from the gastric antrum. The scope was retroflexed visualizing the proximal stomach carefully, which appeared normal, without any sign of mass or ulceration. The scope was straightened and withdrawn back into the esophagus. The esophageal mucosa appeared normal. The scope was withdrawn from the patient. He tolerated the procedure well and was returned to the recovery area in stable condition. IMPRESSION: 1. Small hiatal hernia. 2. Rule out celiac disease. 3. Rule out gastritis and Helicobacter pylori. PLAN: The results of the biopsies will be checked. These findings today would certainly not account for his current symptoms of early satiety, abdominal discomfort, and weight loss. He is already on omeprazole and will use that daily if he thinks it is giving him any relief. Conversely, I advised him that he could also stop it given today's negative endoscopy and observe his symptoms while off of it. I did advise him to certainly resume the omeprazole if things worsen once he stops it. He was advised not to use any aspirin nor NSAIDs as he does have some chronic thrombocytopenia. He did have a CT scan last year describing gallstones, which were confirmed on his recent ultrasound. The ultrasound he had recently on September 20, describes the gallstone and some thickening of the gallbladder wall, as well as the splenomegaly. The pancreas appeared normal. Given today's findings which were so minimal, I shall schedule him for a HIDA scan for further evaluation of the gallbladder to see whether or not this might be contributing to his abdominal complaints and diminished appetite issues. He will also be given an appointment to meet with one of the [facility] surgeons to discuss possible cholecystectomy in the hopes of giving him some relief. He will then be seen in followup in my office. This has all been discussed in detail with his and she was given written instructions in this regard as well. They were both comfortable with this plan. MD TALHA Montaño/LORNE / [id number] MTDD
== END 2021-09-26 15:47 | disposition home or self-care (01) ==
PROVIDERS: PCP Internal Medicine; Visit Provider Internal Medicine
PROC: 0DJ08ZZ Inspection of Upper Intestinal Tract, Via Natural or Artificial Opening Endoscopic (ICD-10-PCS; CPT 43235; principal; 2021-09-26 14:00)
DX: R10.84 Generalized abdominal pain (principal); K29.80 Duodenitis without bleeding; D64.9 Anemia, unspecified; R63.4 Abnormal weight loss; Z68.24 Body mass index [BMI] 24.0-24.9, adult; R68.81 Early satiety; K44.9 Diaphragmatic hernia without obstruction or gangrene; I10 Essential (primary) hypertension; E78.5 Hyperlipidemia, unspecified; Z79.82 Long term (current) use of aspirin; Z79.899 Other long term (current) drug therapy; Z85.46 Personal history of malignant neoplasm of prostate; Z96.651 Presence of right artificial knee joint
CPT/HCPCS: 43239; 88305; 88342

== ENCOUNTER → 2021-10-02 10:30 | Outpatient (REF) | payer MEDICARE, SELFPAY ==
--- NOTE | ~2021-10-02 | NM_ITS ---
EXAMINATION: NUCLEAR MEDICINE HEPATOBILIARY SCAN WITH ENSURE CLINICAL INFORMATION: Abdominal pain. COMPARISON: Ultrasound abdomen complete 09/20/2021. TECHNIQUE: Following intravenous administration of 5 mCi of technetium 99m mebrofenin, imaging over the right upper quadrant was obtained up to 60 minutes. At 60 minutes 8 ounces of ensure was administered and further imaging was obtained up to 60 minutes. FINDINGS: There is normal hepatic uptake without any focal defect. There is prompt visualization of gallbladder by 18 minutes. There is visualization of CBD and small bowel by 18 minutes. Post ensure there is normal contraction of the gallbladder with an ejection fraction of 73% at 60 minutes. NM/NM hepatobiliary wo pharm IMPRESSION: Normal HIDA scan. Normal gallbladder ejection fraction of 73% at 60 minutes post oral Ensure administration.
== END ==
LOC: HO.NUCMED 10:30
PROVIDERS: PCP Internal Medicine; Visit Provider Internal Medicine
DX: K80.20 Calculus of gallbladder without cholecystitis without obstruction (principal); R10.13 Epigastric pain
CPT/HCPCS: 78226; A9537

== ENCOUNTER 2021-10-04 14:41 | Outpatient (REF) | payer MEDICARE, SELFPAY ==
[2021-10-04 15:18] LABS: Blood Urea Nitrogen 18 mg/dL (9-16); Estimated Glomerular Filt Rate 53
== END 2021-10-04 14:42 | disposition home or self-care (01) ==
LOC: HO.LAB 14:41
PROVIDERS: PCP Internal Medicine; Visit Provider Surgery
DX: R10.9 Unspecified abdominal pain (principal); R63.4 Abnormal weight loss; K80.20 Calculus of gallbladder without cholecystitis without obstruction; R16.1 Splenomegaly, not elsewhere classified; D69.6 Thrombocytopenia, unspecified
CPT/HCPCS: 36415; 82565; 84520; 99202

== ENCOUNTER 2021-10-07 11:13 | Outpatient (REF) | payer MEDICARE, SELFPAY ==
--- NOTE | ~2021-10-07 | CT_ITS ---
EXAMINATION: CT ABDOMEN AND PELVIS WITHOUT AND WITH CONTRAST CLINICAL INFORMATION: Diverticulitis COMPARISON: CT abdomen pelvis 06/13/2020 TECHNIQUE: Multidetector volumetric imaging was performed of the abdomen and pelvis before and after the IV administration of 85 mL of Omnipaque 350 intravenous contrast. Sagittal and coronal reformatted images were obtained on the technologist's workstation. This CT examination was performed using dose optimization techniques as appropriate, variously including the following: *Automated exposure control *Adjustment of mA and/or kV according to patient size (this includes techniques or standardized protocols for targeted exams where dose is matched to indication/reason for exam; i.e. extremities or head) *Use of iterative reconstruction technique DLP: 828 mGy-cm FINDINGS: LUNG BASES: Heavy vascular calcifications of the coronary arteries. There are vascular calcifications of aorta. Lung bases are normally aerated. LIVER, GALLBLADDER, AND BILIARY TREE: The liver is normal in size, shape, and attenuation. No focal hepatic lesion or biliary ductal dilatation is present. There is a 1 cm calcified gallstones within the gallbladder. No edema around the gallbladder. No bile duct dilatation. PANCREAS: Unremarkable SPLEEN: Spleen mildly prominent in size measuring 15 cm superior inferior. This is similar prior CT abdomen pelvis 06/13/2020. ADRENAL GLANDS: Unremarkable KIDNEYS AND URETERS: The kidneys are normal in size, shape, and attenuation. No hydronephrosis, hydroureter, or calculi seen. No perinephric stranding. Multiple bilateral renal cortical cysts. Largest upper pole left kidney measures 2.5 cm. These are unchanged since prior study. No follow-up imaging is recommended for simple renal cyst.. BLADDER: Unremarkable GASTROINTESTINAL TRACT: There are scattered diverticula of the colon. There is no diverticulitis. There is no bowel wall thickening /edema. There is no bowel obstruction. There is a moderate volume of stool in the colon. The appendix is nonvisualized . The small bowel loops are unremarkable. The stomach is normal. There is no hiatal hernia. ABDOMINAL WALL: No significant hernia is appreciated. LYMPH NODES: Normal VASCULAR: Atherosclerotic vascular calcifications throughout the abdomen and pelvis. There is a saccular aneurysm posterior distal aorta just proximal to the bifurcation. Aneurysm measures 4.3 cm AP. Axial image 131/249 series 6. This is unchanged since CAT scan 06/13/2020. Consider vascular consultation. PELVIC VISCERA: Unremarkable OSSEOUS STRUCTURES: Unremarkable CT/CT abdomen pelvis wo/w con IMPRESSION: 1. No acute abnormality CT scan abdomen pelvis. There is no acute change of the bowel. 2. 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 Consider vascular consultation. 3. Stable mild splenomegaly. 4. Cholelithiasis. No bile duct dilatation. Fleischner guidelines were followed.
[2021-10-07] MEDS: Barium Sulfate Oral (Mocha) 450 ML ORAL.SUSP 900 ML PO (14:19)
[2021-10-07] MEDS: iohexoL 350 MG/ML 100 ML INFUS..BTL IV (14:20)
== END 2021-10-07 11:14 | disposition home or self-care (01) ==
LOC: HO.CT 11:13
PROVIDERS: PCP Internal Medicine; Visit Provider Surgery
DX: K57.92 Diverticulitis of intestine, part unspecified, without perforation or abscess without bleeding (principal)
CPT/HCPCS: 74178; Q9967

== ENCOUNTER → 2021-10-08 11:03 | Outpatient (BNVA) | payer MEDICARE, SELFPAY | PROVIDERS: PCP Internal Medicine; Visit Provider Surgery | DX: R10.9 Unspecified abdominal pain (principal); K80.20 Calculus of gallbladder without cholecystitis without obstruction; R16.1 Splenomegaly, not elsewhere classified; I10 Essential (primary) hypertension; I72.9 Aneurysm of unspecified site; D69.6 Thrombocytopenia, unspecified | CPT/HCPCS: 99212 ==

== ENCOUNTER → 2021-10-10 10:02 | Outpatient (BNVA) | payer MEDICARE, SELFPAY | PROVIDERS: PCP Internal Medicine; Visit Provider Surgery Vascular Surgery | DX: I71.4 Abdominal aortic aneurysm, without rupture (principal) | CPT/HCPCS: 99202 ==

== ENCOUNTER 2021-11-12 12:09 | Outpatient (REF) | payer MEDICARE, SELFPAY ==
[2021-11-12 12:44] LABS: MANUAL DIFF FLAG NO
[2021-11-12 13:13] LABS: Basophils Percent Auto 0.5 % (0-2); Eosinophils Absolute Auto 0.1 X10*3/uL (0.0-0.4); Eosinophils Percent Auto 2.3 % (0-4); Hematocrit 29.3 % (42.0-52.0); Imm Gran Abs Auto 0.02 X10*3/uL (0.00-0.03); Imm Gran Pct Auto 0.3 % (0.0-0.4); Lymphocytes Absolute Auto 1.3 X10*3/uL (1.2-4.9); Lymphocytes Percent Auto 21.9 % (20-40); Mean Corpuscular HGB Conc 33.4 g/dl (31.0-36.0); Mean Corpuscular Hemoglobin 34.4 pg (27.0-33.0); Mean Corpuscular Volume 102.8 fL (80.0-98.0); Mean Platelet Volume 10.3 fL (9.4-12.4); Monocytes Absolute Auto 0.7 X10*3/uL (0.1-1.2); Monocytes Percent Auto 11.3 % (2-11); Neutrophils Absolute Auto 3.9 x10*3/uL (2.0-8.3); Neutrophils Percent Auto 63.7 % (45-73); Platelet Count 127 X10*3/uL (160-400); Red Blood Count 2.85 X10*6/uL (4.60-5.80); Red Cell Distribution Width 12.8 % (11.0-16.0)
[2021-11-12 13:15] LABS: Hemoglobin 9.8 g/dl (14.0-18.0)
[2021-11-12 13:27] LABS: C Reactive Protein 1.41 mg/dL (< or = 0.50); Iron 70 mcg/dL (45-160); Percent Iron Saturation 32 % (15-50); Total Iron Binding Capacity 222 mcg/dL (228-428); Unsaturated Iron Binding 152 ug/dL
[2021-11-12 13:49] LABS: Erythrocyte Sedimentation Rate 28 MM/HR (0-15); Ferritin 203 ng/mL (20-250)
[2021-11-12 14:24] LABS: Folate > 20.0 ng/mL (> or = 4.0); Vitamin B12 338 pg/mL (200-900)
== END 2021-11-12 12:10 | disposition home or self-care (01) ==
LOC: HO.LAB 12:09
PROVIDERS: PCP Internal Medicine; Visit Provider Internal Medicine
DX: R63.4 Abnormal weight loss (principal); D64.9 Anemia, unspecified
CPT/HCPCS: 36415; 82550; 82607; 82728; 82746; 83540; 85025; 85652; 86140

== ENCOUNTER 2021-11-14 11:24 | Outpatient (REF) | payer MEDICARE, SELFPAY ==
[2021-11-14 12:47] LABS: T4 Thyroxine 6.4 ug/dL (4.5-12.0); Thyroid Stimulating Hormone 0.52 uIU/mL (0.32-4.0)
== END 2021-11-14 11:25 | disposition home or self-care (01) ==
LOC: HO.LAB 11:24
PROVIDERS: PCP Internal Medicine; Visit Provider Internal Medicine
DX: R63.4 Abnormal weight loss (principal)
CPT/HCPCS: 36415; 84436; 84443